=== PATIENT | male | born 1935 | race African-American/Black ===

== ENCOUNTER 2018-04-19 09:25 | Outpatient (CLI) | payer MEDICARE, BC ==
[~2018-04-19] VITALS: Ht 167.6 cm; Wt 73.5 kg
[2018-04-19] VITALS (10 sets, daily range): BP systolic 129–177; BP diastolic 60–77
[2018-04-19] MEDS ORDERED: ALLO100T PO (10:06)
[2018-04-19] MEDS ORDERED: PIOG15TA42 PO (10:08)
[2018-04-19] MEDS ORDERED: GLIM4TAB2 PO (10:08)
[2018-04-19] MEDS ORDERED: CLON0.2T PO (10:08)
[2018-04-19] MEDS ORDERED: LISI-334 PO (10:08)
[2018-04-19] MEDS ORDERED: ASPI-630 PO (10:08)
[2018-04-19] MEDS ORDERED: AMLO10TA6 PO (10:08)
[2018-04-19] MEDS ORDERED: METF500T16 PO (10:08)
[2018-04-19] MEDS ORDERED: POTA20TA82 PO (10:08)
[2018-04-19] MEDS ORDERED: LANS30CA66 PO (10:08)
[2018-04-19 10:12] LABS: BASO % 1 % (0-3); EOS # 0.2 x10^3/uL (0.0-0.7); EOS % 2 % (0-3); HEMATOCRIT 39.8 % (39.0-53.0); HEMOGLOBIN 13.6 g/dL (13.0-17.5); LYMPH # 1.8 x10^3/uL (1.0-4.8); LYMPH % 23 % (24-48); MEAN CORPUSCULAR HEMOGLOBIN 28 pg (25-35); MEAN CORPUSCULAR HGB CONC 34 g/dL (31-37); MEAN CORPUSCULAR VOLUME 83 fL (79-100); MONO # 0.8 x10^3/uL (0.0-1.1); MONO % 10 % (0-9); NEUT # 5.1 x10^3uL (1.8-7.7); NEUT % 64 % (31-73); PLATELET COUNT 248 x10^3/uL (140-400); RED BLOOD COUNT 4.82 x10^6/uL (4.30-5.70); WHITE BLOOD COUNT 7.9 x10^3/uL (4.0-11.0)
[2018-04-19 10:20] LABS: PROTHROMBIN TIME PATIENT 12.4 SEC (11.7-14.0)
[2018-04-19] MEDS ORDERED: LIDOCAINE 1% Multi-Dose 20 ML VIAL. ONE (11:06)
[2018-04-19] MEDS ORDERED: IODIXANOL 320 MG/ML 100 ML VIAL. ONE (11:06)
[2018-04-19] MEDS ORDERED: fentaNYL PF VIAL 100 MCG/2 ML VIAL ONE (11:17)
[2018-04-19] MEDS ORDERED: MIDAZOLAM HCL/PF 5 MG/5 ML VIAL. ONE (11:17)
[2018-04-19] MEDS ORDERED: HEPARIN for IV BOLUS 10,000 UNIT/10 ML VIAL. ONE (11:17)
[2018-04-19 11:35] LABS: CALCIUM 9.5 mg/dL (8.5-10.1); CREATININE 1.6 mg/dL (0.7-1.3); GFR 50.4; POTASSIUM 4.1 mmol/L (3.5-5.1)
[2018-04-19] MEDS ORDERED: MIDAZOLAM HCL/PF 5 MG/5 ML VIAL. IV ONE (11:45)
[2018-04-19] MEDS ORDERED: IODIXANOL 320 MG/ML 100 ML VIAL. IART ONE (11:45)
[2018-04-19] MEDS ORDERED: LIDOCAINE 1% Multi-Dose 20 ML VIAL. INJ ONE (11:45)
[2018-04-19] MEDS ORDERED: fentaNYL PF VIAL 100 MCG/2 ML VIAL IV ONE ×2 (11:45→13:30)
--- NOTE | 2018-04-19 12:58 | CARD ---
MR#: [id number] Date of Study: 04/19/2018 Ordering Physician: VINNY FISCHER, Referring Physician: VINNY FISCHER, Tech: Samanthafloridalma Zambrano RTR APPROVED REPORT Patient StatusOUT-PATIENT Candy Cutter Hand: Samantha Zambrano RTR Procedure(s) performed: Aortogram with bilateral lower extremity runoff Moderate Sedation time: 40 mins INDICATION FOR PROCEDURE The indication(s) include : Peripheral artery disease with claudication and nonhealing wound left roberto t. PROCEDURE NARRATIVE After explaining the risks, benefits and alternative options, informed consent was obtained from evelin ent. Patient was brought to the cardiac Bulk System Operator and his right groin was prepped and draped in the us ual fashion. 20 mL of 2% lidocaine was infiltrated into the skin and subcutaneous tissues for local a nesthesia. Arterial access was obtained the right common femoral artery and a 5 Cameroonian sheath was ins erted. 5 Cameroonian pigtail catheter was used to perform aortogram with bilateral lower extremity runoff. Selective injections were performed within the abdominal aorta to better visualize the abdominal aor tic aneurysm with possible dissection. Patient tolerated the procedure well. Hemostasis in the right groin was achieved using mynx closure device. There were no immediate complications. FINDINGS 1. Infrarenal abdominal aortic aneurysm with dissection causing approximately 80% luminal obstructio n. 2. The left common iliac artery showed 20% ostial stenosis. The right common iliac artery showed 30% distal segment stenosis. 3. The external iliac arteries did not show any significant stenosis bilaterally. 4. The common femoral arteries did not show any significant stenosis bilaterally. 5. The left superficial femoral artery showed long 100% chronic total occlusion involving the midseg ment with distal reconstitution from collaterals. The right superficial femoral artery showed 60-70% stenosis in the midsegment. 6. The popliteal arteries did not show any significant stenosis bilaterally. 7. The left anterior tibial artery showed 100% chronic total occlusion proximally. The left posterio r tibial artery showed 100% chronic total occlusion proximally. The left peroneal artery did not show any significant stenosis. 8. The right anterior tibial artery showed 100% chronic occlusion proximally. The right posterior ti bial artery showed 100% chronic total occlusion proximally. The peroneal artery did not show any crit ical stenosis in the proximal to midsegment. The distal segments of these vessels were not visualized properly. Conclusion 1. Significant bilateral lower extremity peripheral artery disease as described above including chron ic total occlusion involving the midsegment of the left superficial femoral artery 2. Infrarenal abdominal aortic aneurysm with dissection flap causing 80% luminal stenosis Recommendations Vascular surgery consultation for abdominal aortic aneurysm with dissection We will consider BRAKE LINING MAKER to left SFA at a later date Signed by : Vinny Fischer, Electronically Approved : 04/19/2018 12:57:15
[2018-04-19] MEDS ORDERED: IV 1/2 NORMAL SALINE 1,000 ML IV SCH (13:18)
--- NOTE | 2018-04-19 13:18 | PDOC ---
MODERATE SEDATION ASSESSMENT RISKS/ALTERNATIVES Risks/Alternatives Risks and alternatives of this type of sedation and procedure discussed with: RISK/ALTERNATIVES: Patient H & P ON CHART H & P H & P on chart and reviewed for co-morbid conditions and appropriate labs. H&P ON CHART: Yes STATUS PREG STATUS ASSESSED: N/A MEDS/ALLERGIES REVIEWED Meds/Allergies Reviewed Medications and Allergies including time and route of recently administered narcotics and sedatives. MEDS/ALLERGIES REVIEWED: Yes ASA RATING ASA RATING: III AIRWAY ASSESSMENT Airway Assessment Airway patency, oral function limitations, presence of caps, crowns, dentures, partials, and ability to extend neck assessed. AIRWAY ASSESSMENT: Yes MALLAMPATI SCORE MALLAMPATI SCORE: II PRE-SEDATION ASSESSMENT PRE-SEDATION ASSESSMENT: Yes VINNY PORRAS MD Apr 19, 2018 13:18
[2018-04-19] MEDS ORDERED: ACETAMINOPHEN 325 MG TABLET. PO PRN (13:30)
[2018-04-19] MEDS ORDERED: MIDAZOLAM HCL/PF 2 MG/2 ML VIAL. IV ONE (13:30)
--- NOTE | 2018-04-19 14:27 | CARD ---
MR#: [id number] Date of Study: 04/19/2018 Ordering Physician: VINNY FISCHER, Referring Physician: VINNY FISCHER Tech: Fina Pagan RDCS APPROVED REPORT EXAM: Two-dimensional and M-mode echocardiogram with Doppler and color Doppler. Other Information Quality : GoodHR: 62bpm Rhythm : NSR INDICATION PVD 2D DIMENSIONS RVDd3.7 (2.9-3.5cm)Left Atrium(2D)2.7 (1.6-4.0cm) IVSd1.0 (0.7-1.1cm)Aortic Root(2D)3.2 (2.0-3.7cm) LVDd4.2 (3.9-5.9cm)LVOT Diameter1.9 (1.8-2.4cm) PWd0.9 (0.7-1.1cm)LVDs3.1 (2.5-4.0cm) FS (%) 27.5 %SV43.1 ml LVEF(%)53.9 (>50%) M-Mode DIMENSIONS Left Atrium(MM)2.80 (2.5-4.0cm)Aortic Root3.55 (2.2-3.7cm) Aortic Valve AoV Peak Erickson.151.7cm/sAoV VTI35.3cm AO Peak GR.9.2mmHgLVOT Peak Erickson.80.5cm/s AO Mean GR.5mmHgAVA (VMAX)1.52cm2 AMY (VTI)1.60cm2 Mitral Valve MV E Xpbblvlp69.4cm/sMV DECEL GYHF940en MV A Bgjznqvp350.2cm/sE/A Ratio0.6 MV A Smougere821td Pulmonary Valve PV Peak Lsmxdmfu69.9cm/s Tricuspid Valve TR P. Kmwxlttt810cq/sRAP NQUMBSKG7tvEx TR Peak Gr.06mkMfKWMI02fwMu LEFT VENTRICLE The left ventricle is normal size. There is normal left ventricular wall thickness. The left ventricu lar systolic function is normal. The Ejection Fraction is 55-60%. There is normal LV segmental wall m otion. Transmitral Doppler flow pattern is Grade I-abnormal relaxation pattern. RIGHT VENTRICLE The right ventricle is normal size. There is normal right ventricular wall thickness. The right ventr icular systolic function is normal. ATRIA The left atrium size is normal. The right atrium size is normal. The interatrial septum is intact wit h no evidence for an atrial septal defect or patent foramen ovale as noted on 2-D or Doppler imaging. AORTIC VALVE The aortic valve is mildly sclerotic. The aortic valve is trileaflet. Doppler and Color Flow revealed no significant aortic regurgitation. There is no significant aortic valvular stenosis. MITRAL VALVE The mitral valve is normal in structure and function. There is no evidence of mitral valve prolapse. There is no mitral valve stenosis. Doppler and Color Flow revealed no mitral valve regurgitation note d. TRICUSPID VALVE The tricuspid valve is normal in structure and function. Doppler and Color Flow revealed trace tricus pid regurgitation. The PA pressure was estimated at 24 mmHg. There is no tricuspid valve prolapse or vegetation. There is no tricuspid valve stenosis. PULMONIC VALVE The pulmonary valve is normal in structure and function. Doppler and Color Flow revealed no pulmonic valvular regurgitation. There is no pulmonic valvular stenosis. GREAT VESSELS The aortic root is normal in size. The ascending aorta is normal in size. The IVC is normal in size a nd collapses >50% with inspiration. PERICARDIAL EFFUSION There is no evidence of significant pericardial effusion. Critical Notification Critical Value: No <Conclusion> The left ventricular systolic function is normal. The Ejection Fraction is 55-60%. There is normal LV segmental wall motion. Transmitral Doppler flow pattern is Grade I-abnormal relaxation pattern. Trace tricuspid regurgitation. The PA pressure was estimated at 24 mmHg. There is no evidence of significant pericardial effusion. Signed by : Vinny Fischer, Electronically Approved : 04/19/2018 14:25:58
--- NOTE | 2018-04-19 15:14 | NUR ---
Discharge Note: MARIA DEL ROSARIO LOVELL Discharge instructions and discharge home medications reviewed with Patient and a copy given. All questions have been answered and understanding verbalized. The following instructions and handouts were given: education was given to patient regarding moderate sedation, groin site care, and CTA that is scheduled. Pt was also instructed to be NPO [address] Pt was also instructed to continue home medications as directed. Pt verbalized understanding. Discontinued lines and drains: peripheral iv was discontinued with no complications. Catheter tip was intact. Patient discharged to home with self care via wheelchair. Pt was accompanied by spouse.
== END 2018-04-19 15:17 | disposition home or self-care (01) ==
LOC: CCL 09:25
PROVIDERS: ATTEND Internal Medicine Cardiovascular Disease
DX: I70.213 Atherosclerosis of native arteries of extremities with intermittent claudication, bilateral legs (principal); I70.92 Chronic total occlusion of artery of the extremities; I71.4 Abdominal aortic aneurysm, without rupture; I10 Essential (primary) hypertension; E11.9 Type 2 diabetes mellitus without complications; M10.9 Gout, unspecified; Z98.49 Cataract extraction status, unspecified eye; Z96.1 Presence of intraocular lens; Z79.84 Long term (current) use of oral hypoglycemic drugs; Z79.899 Other long term (current) drug therapy
CPT/HCPCS: 36200; 36415; 75630; 80048; 85025; 85610; 93306; 99152; 99153; C1713; C1769; C1892; J1644; J2250; J3010; Q9967; G0269

== ENCOUNTER → 2018-04-23 | Outpatient (CLI) | payer MEDICARE, BC ==
[2018-04-19 14:25] VITALS: BP 165/77
[~2018-04-23] MED LIST: ALLO100T PO; AMLO10TA6 PO; ASPI-630 PO; CLON0.2T PO; CONTRAST GIVEN. MC PRN; GLIM4TAB2 PO; IOHEXOL 300 MG/ML 100ML VIAL. IV ONE; LANS30CA66 PO; LISI-334 PO; METF500T16 PO; PIOG15TA42 PO; POTA20TA82 PO
--- NOTE | 2018-04-23 16:48 | RAD ---
CT angiography of the abdomen and pelvis 04/23/2018 INDICATION: Infrarenal abdominal aortic aneurysm. COMPARISON STUDY: Intraoperative imaging during femoral runoff April 19, 2018 TECHNIQUE: Multidetector CT imaging of the abdomen and pelvis was performed both before and after the administration of IV contrast. 3-D maximum intensity projection and volume rendered reconstructions were created on an independent workstation and reviewed. Discussion: There is diffuse as described vascular disease. The visualized descending thoracic aorta is otherwise unremarkable. Minimal nonflow-limiting narrowing is seen involving the proximal celiac artery. Mild ectasia is seen distal to this. The superior mesenteric artery is patent. Approximately 50 percent stenoses of the bilateral renal arteries is seen proximally. There is an infrarenal abdominal aortic ectasia measuring up to 2.8 cm in diameter. Beginning approximately 1.8 cm below the renal arteries is a chronic appearing infrarenal abdominal aortic dissection. There is no estimated 80 percent narrowing of the true lumen. This is on the right side of the abdominal aorta. The dissection resolves above the aortic bifurcation. There is an approximately 70 percent stenosis involving the ostium of the left common iliac artery. 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 Artery measures approximately 1.1 cm at this level.Tortuosity of the iliac vessels is seen. High-grade stenosis of the left internal iliac artery is seen. The left external iliac artery and left common femoral artery are grossly patent.. 90 percent stenosis of the proximal left SFA noted. There is approximately 25 percent stenosis of the right common iliac artery ostium. Diffuse calcification of the right common iliac artery is seen. High-grade stenosis origin right internal iliac artery is seen. The right external iliac artery is grossly patent. Right common femoral artery is grossly patent. Visualized right superficial femoral artery is grossly patent. Nonvascular findings: Centrilobular emphysema is seen involving the bilateral lung bases. Right parahilar adenopathy is noted. This is partially visualized. No comparison studies available for review. Calcified mediastinal lymph nodes appear to be present. Findings are nonspecific. CT chest with contrast recommended for further characterization. Evidence of prior granulomatous disease involving the spleen is noted. Small fat-containing adenoma in the left adrenal gland measuring 1 cm diameter noted. Areas of renal scarring versus prior infarcts and small renal cysts noted. Solid viscera of the abdomen demonstrate no acute or melena. No bowel obstruction is seen. Extensive colonic diverticulosis is noted no evidence of acute inflammatory changes identified. Appendix is unremarkable. Bladder appears mildly thickened. The prostate is enlarged. No acute osseous changes are identified. IMPRESSION: 1.Chronic appearing infrarenal abdominal aortic dissection with approximately 80 percent narrowing of the infrarenal abdominal aortic diameter. Dissection does not extend below the bifurcation. 2. 50 percent stenoses of the bilateral renal arteries. 3. Approximately 70 percent stenosis of the left common iliac artery. 25 percent stenosis of the right common iliac artery. 4.High-grade stenosis of the proximal left SFA. 5. High-grade stenosis of the bilateral internal iliac arteries 6. Partially visualized noncalcified right hilar adenopathy. Splenic calcifications other calcified mediastinal lymph nodes noted. Findings most likely reflect granulomatous change however given the presence of COPD and likely high risk status of the patient, as well as the noncalcified appearance of some of these nodes, CT chest with contrast recommended for further evaluation. CT DOSING PQRS STATEMENT: One or more of the following individualized dose reduction techniques were utilized for this examination: 1. Automated exposure control 2. Adjustment of the mA and/or kV according to patient size 3. Use of iterative reconstruction technique Electronically signed by: Austin Rodriguez MD (04/23/2018 4:43 PM) [id number]
== END | disposition home or self-care (01) ==
LOC: CT 10:56
PROVIDERS: ATTEND Internal Medicine Cardiovascular Disease
DX: I77.811 Abdominal aortic ectasia (principal); I70.1 Atherosclerosis of renal artery; K57.30 Diverticulosis of large intestine without perforation or abscess without bleeding; D71 Functional disorders of polymorphonuclear neutrophils; J43.2 Centrilobular emphysema; D35.00 Benign neoplasm of unspecified adrenal gland; R59.0 Localized enlarged lymph nodes
CPT/HCPCS: 74174; Q9967

== ENCOUNTER 2018-06-11 06:28 | Inpatient (IN) | payer MEDICARE, BC ==
[2018-06-11] VITALS (12 sets, daily range): BP systolic 122–188; BP diastolic 49–84
[~2018-06-11] VITALS: Ht 167.6 cm; Wt 71.9 kg
[~2018-06-11 06:28] MED LIST changes: -AMLO10TA6 PO; +AMLO10TA8 PO; -CONTRAST GIVEN. MC PRN; -IOHEXOL 300 MG/ML 100ML VIAL. IV ONE
[2018-06-11] MEDS ORDERED: IV NORMAL SALINE 1000ML BAG 1,000 ML IV SCH (07:00)
[2018-06-11 07:20] LABS: HEMATOCRIT 40.8 % (39.0-53.0); HEMOGLOBIN 13.2 g/dL (13.0-17.5); RED BLOOD COUNT 4.93 x10^6/uL (4.30-5.70); RED CELL DISTRIBUTION WIDTH 14.5 % (11.5-14.5); WHITE BLOOD COUNT 8.4 x10^3/uL (4.0-11.0)
[2018-06-11 07:35] LABS: PROTHROMBIN TIME PATIENT 12.5 SEC (11.7-14.0)
[2018-06-11 07:36] LABS: CALCIUM 9.9 mg/dL (8.5-10.1); CREATININE 1.6 mg/dL (0.7-1.3); GFR 50.4; POTASSIUM 4.7 mmol/L (3.5-5.1)
[2018-06-11] MEDS ORDERED: LIDOCAINE 1% Multi-Dose 20 ML VIAL. ONE (07:42)
[2018-06-11] MEDS ORDERED: IODIXANOL 320 MG/ML 100 ML VIAL. ONE (07:42)
[2018-06-11] MEDS ORDERED: MIDAZOLAM HCL/PF 2 MG/2 ML VIAL. ONE ×2 (08:53→09:13)
[2018-06-11] MEDS ORDERED: fentaNYL PF VIAL 100 MCG/2 ML VIAL ONE (08:53)
[2018-06-11] MEDS ORDERED: fentaNYL PF VIAL 100 MCG/2 ML VIAL IV ONE (09:00)
[2018-06-11] MEDS ORDERED: IODIXANOL 320 MG/ML 100 ML VIAL. IART ONE (09:00)
[2018-06-11] MEDS ORDERED: MIDAZOLAM HCL/PF 2 MG/2 ML VIAL. IV ONE (09:00)
[2018-06-11] MEDS ORDERED: LIDOCAINE 1% Multi-Dose 20 ML VIAL. INJ ONE (09:00)
[2018-06-11] MEDS ORDERED: CONTRAST GIVEN. MC PRN (09:15)
[2018-06-11] MEDS ORDERED: HEPARIN for IV BOLUS 10,000 UNIT/10 ML VIAL. IV ONE (11:00)
[2018-06-11] MEDS ORDERED: NITROGLYCERIN 200 MCG/2 ML SYRINGE FOR CATH/VASC LAB. IART ONE (11:00)
[2018-06-11] MEDS ORDERED: CLOPIDOGREL BISULFATE 75 MG TABLET ONE (11:03)
[2018-06-11] MEDS ORDERED: NITROGLYCERIN 200 MCG/2 ML SYRINGE FOR CATH/VASC LAB. ONE (11:03)
[2018-06-11] MEDS ORDERED: ASPIRIN 325 MG TABLET ONE (11:09)
[2018-06-11] MEDS ORDERED: CLOPIDOGREL BISULFATE 75 MG TABLET PO ONE (11:15)
[2018-06-11] MEDS ORDERED: ASPIRIN 325 MG TABLET PO ONE (11:15)
--- NOTE | 2018-06-11 12:00 | NUR ---
Patient arrived to unit from director labor standards. Right groin is soft, no bleeding. Bilateral DP pulses dopplered. Vital Signs stable. Patient oriented to unit. Call light within reach. No complaints at the moment. Will continue to monitor.
[2018-06-11] MEDS ORDERED: DEXTROSE 50% 25 GM / 50ML DISP.SYRIN. IV PRN (13:45)
[2018-06-11] MEDS: LISINOPRIL 20 MG TABLET PO SCH (14:41)
[2018-06-11] MEDS: amLODIPine BESYLATE 10 MG TABLET PO SCH (14:41)
[2018-06-11] MEDS ORDERED: ASPIRIN CHEWABLE 81 MG TABLET. PO SCH (15:00)
[2018-06-11] MEDS ORDERED: IV 1/2 NORMAL SALINE 1,000 ML IV SCH (16:57)
--- NOTE | 2018-06-11 16:57 | PDOC ---
MODERATE SEDATION ASSESSMENT RISKS/ALTERNATIVES Risks/Alternatives Risks and alternatives of this type of sedation and procedure discussed with: RISK/ALTERNATIVES: Patient H & P ON CHART H & P H & P on chart and reviewed for co-morbid conditions and appropriate labs. H&P ON CHART: Yes STATUS PREG STATUS ASSESSED: N/A MEDS/ALLERGIES REVIEWED Meds/Allergies Reviewed Medications and Allergies including time and route of recently administered narcotics and sedatives. MEDS/ALLERGIES REVIEWED: Yes ASA RATING ASA RATING: III AIRWAY ASSESSMENT Airway Assessment Airway patency, oral function limitations, presence of caps, crowns, dentures, partials, and ability to extend neck assessed. AIRWAY ASSESSMENT: Yes MALLAMPATI SCORE MALLAMPATI SCORE: II PRE-SEDATION ASSESSMENT PRE-SEDATION ASSESSMENT: Yes VINNY PORRAS MD Jun 11, 2018 16:57
[2018-06-11] MEDS ORDERED: ACETAMINOPHEN 325 MG TABLET. PO PRN (17:00)
[2018-06-11] MEDS: INSULIN LISPRO 300 UNITS/3 ML INSULN.PEN. SQ SCH (17:00)
--- NOTE | 2018-06-11 17:17 | CARD ---
MR#: [id number] Date of Study: 06/11/2018 Ordering Physician: VINNY FISCHER, Referring Physician: VINNY FISCHER, Tech: RT Bhavani (R) APPROVED REPORT Technologist: RT Bhavani (R) Nurse: Fouzia Cespedes R.N. Procedure(s) performed: Successful SHEET ROCK TAPER/stents placement to the left superficial femoral artery Moderate sedation: 134 mins INDICATION The indication(s) include : Peripheral vascular disease with claudication. PROCEDURE NARRATIVE After explaining the risks, benefits and alternative options, informed consent was obtained from evelin ent. Patient was brought to the cardiac Computer Aided Design Drafter and his right groin was prepped and draped in the us ual fashion. 20 mL of 2% lidocaine was infiltrated into the skin and subcutaneous tissues for local a nesthesia. Arterial access was obtained the right common femoral artery and a 6 Liberian sheath was ins erted. A 6 Liberian UF catheter was then used to cross the aortic papa with a 0.035 inch Glidewire ad vantage guidewire. The sheath in the right groin was exchanged to a 6 Liberian 65 cm destination sheath that was advanced under fluoroscopy guidance and the tip was positioned in the left common femoral a rtery. Selective angiography confirmed the previous he described long 100% chronic total occlusion in volving midsegment of the left superficial femoral artery. The very proximal segment showed 60-70% st enosis. There was one vessel runoff below the knee with peroneal artery as described in recent angiog laura with chronic total occlusions of left anterior and posterior tibial arteries. After several attempts, the long chronic total occlusion in th left superficial femoral artery was cr ossed with the Glidewire advantage with backup support from 4 Liberian angled glide catheter. Contrast injections distal to the lesion however showed thrombus in the distal segment causing occlusion. A Pr onto aspiration catheter was then used to make multiple thrombectomy passes. Subsequently, the wire w as changed to a 0.014 inch command ES guidewire. The lesions in the distal and mid segments of the le ft SFA predilated with a 5.0 x 1 50 mm Reimage [place] balloon and the very proximal segment was dilate d with a 5.0 x 40 mm Brito [place] balloon. The distal segment was then treated with a 5.0 x 100 mm A [employer] supera self-expanding stent. The region of the proximal cap of the chronic total occlusion was covered with 5.5 x 60 mm Brito supera self-expanding stent. Follow-up angiography showed resolution of the lesions with good distal flow. Patient tolerated the procedure well. Hemostasis was achieved u sing mynx closure device. There were no immediate complications. Conclusion Successful and complex SHEET ROCK TAPER/stent placement to the left superficial femoral artery. Recommendations 1. Aspirin 81 mg daily 2. Plavix 325 mg daily 3. Vascular risk factor modification Signed by : Vinny Fischer, Electronically Approved : 06/11/2018 17:16:47
[2018-06-11] MEDS: PANTOPRAZOLE 40 MG TABLET.DR. PO SCH (17:34)
[2018-06-11] MEDS: ALLOPURINOL 100 MG TABLET. PO SCH (17:34)
[2018-06-11] MEDS ORDERED: cloNIDine HCL 0.2 MG TABLET PO SCH (21:00)
[2018-06-11] MEDS: GLIMEPIRIDE 2 MG TABLET. PO SCH (21:39)
[2018-06-12 03:25] VITALS: BP 133/66
[2018-06-12 07:00] VITALS: BP 154/72
[2018-06-12] MEDS ORDERED: CLOPIDOGREL BISULFATE 75 MG TABLET PO SCH (08:00)
[2018-06-12] MEDS ORDERED: POTASSIUM CHLORIDE 20 MEQ TABLET.ER. PO SCH (08:00)
[2018-06-12] MEDS ORDERED: ASPIRIN ENTERIC COATED 81 MG TABLET.DR. PO SCH (08:00)
[2018-06-12] MEDS: INSULIN LISPRO 300 UNITS/3 ML INSULN.PEN. SQ SCH (08:00)
[2018-06-12] MEDS: ALLOPURINOL 100 MG TABLET. PO SCH (09:00)
[2018-06-12] MEDS ORDERED: ASPIRIN ENTERIC COATED 325 MG TABLET.DR. PO SCH (09:00)
[2018-06-12] MEDS: PANTOPRAZOLE 40 MG TABLET.DR. PO SCH (09:01)
[2018-06-12] MEDS: amLODIPine BESYLATE 10 MG TABLET PO SCH (09:01)
[2018-06-12] MEDS: GLIMEPIRIDE 2 MG TABLET. PO SCH (09:01)
[2018-06-12] MEDS: LISINOPRIL 20 MG TABLET PO SCH (09:02)
[2018-06-12 10:43] VITALS: BP 140/71
--- NOTE | 2018-06-12 14:45 | NUR ---
DISCHARGED PATIENT TO HOME. M.T SYSTEM IS DOWN. DISCHARGE INSTRUCTIONS ARE ON DOWN TIME PAPER AND COPY IN HARD CHART. PIV AND HEART MONITOR REMOVED. ESCORTED PATIENT TO FRONT ENTRANCE PER WHEELCHAIR INTO A PRIVATE VEHICLE.
--- NOTE | 2018-06-12 15:01 | NUR ---
SS following for discharge planning. SS reviewed pt chart. Pt is from home with spouse and currently on room air. No discharge needs noted at this time. SS will continue to follow for pending discharge needs.
--- NOTE | 2018-06-12 15:21 | PDOC3 ---
YANIQUE PERSAUD BELL NECK HAMMERER 06/12/18 1521: Discharge Summary Visit Information Date of Admission: Jun 11, 2018 Date of Discharge: Jun 12, 2018 Admitting Diagnosis: Severe PAD with nonhealing wound and claudication Final Diagnosis Severe LE PAD, S/P LABORER TIN CAN/stent to [facility] Brief Hospital Course Allergies Allergies Coded Allergies Type Severity Reaction Last Updated Verified No Known Drug Allergies 10/23/13 No Vital Signs Vital Signs Date Time Temp Pulse Resp B/P (MAP) Pulse Ox O2 Delivery O2 Flow Rate FiO2 06/12/18 10:43 98.2 89 18 140/71 (94) 96 Room Air 98.2 06/11/18 11:27 2.0 Lab Results Laboratory Tests Test 06/11/18 07:01 06/11/18 11:48 06/11/18 16:56 06/11/18 20:40 White Blood Count 8.4 x10^3/uL (4.0-11.0) Red Blood Count 4.93 x10^6/uL (4.30-5.70) Hemoglobin 13.2 g/dL (13.0-17.5) Hematocrit 40.8 % (39.0-53.0) Mean Corpuscular Volume 83 fL (79-100) Mean Corpuscular Hemoglobin 27 pg (25-35) Mean Corpuscular Hemoglobin Concent 32 g/dL (31-37) Red Cell Distribution Width 14.5 % (11.5-14.5) Platelet Count 256 x10^3/uL (140-400) Prothrombin Time 12.5 SEC (11.7-14.0) Prothromb Time International Ratio 1.0 (0.8-1.1) Sodium Level 142 mmol/L (136-145) Potassium Level 4.7 mmol/L (3.5-5.1) Chloride Level 102 mmol/L (98-107) Carbon Dioxide Level 28 mmol/L (21-32) Anion Gap 12 (6-14) Blood Urea Nitrogen 22 mg/dL (8-26) Creatinine 1.6 mg/dL (0.7-1.3) Estimated GFR (Cockcroft-Gault) 50.4 Glucose Level 163 mg/dL (70-99) Calcium Level 9.9 mg/dL (8.5-10.1) Glucose (Fingerstick) 122 mg/dL (70-99) 113 mg/dL (70-99) 128 mg/dL (70-99) Test 06/12/18 07:21 06/12/18 11:28 Glucose (Fingerstick) 114 mg/dL (70-99) 188 mg/dL (70-99) Laboratory Tests Test 06/11/18 16:56 06/11/18 20:40 06/12/18 07:21 06/12/18 11:28 Glucose (Fingerstick) 113 mg/dL (70-99) 128 mg/dL (70-99) 114 mg/dL (70-99) 188 mg/dL (70-99) Brief Hospital Course Mr. Robertson is a 83 yo male admitted for planned femoral runoff. Pt seen in office with complains of LLE claudications with known PAD. also noted with nonhealing wound to foot. Femoral runoff revealed significnat stenosis to LSFA prompting a successful LABORER TIN CAN/stent to LSFA via right transfemoral approach. Right groin is inact, with small hematoma but otherwise no swelling or tenderness, neurovascular status to bilateral LE intact. VSS. No pain, no CP nor SOA. Able to ambulate without difficulty. Post cath instructions provided. Discussed meds with pt and told metformin till tomorrow evening. 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 Will obtain follow up lipids as an outpt and will discuss further antilipemics either challenge with a different statin or try PCSK9 inhibitor. Home ASA 325 mg and plavix. Discharge Information Condition at Discharge: Stable Follow Up: Weeks (4) Disposition/Orders: D/C to Home Scheduled Allopurinol (Allopurinol) 100 Mg Tablet, 1 TAB PO DAILY for md order, #30 Ref 5 (Reported) Entered as Reported by: ANA RUSH on 04/19/18 1006 Last Taken: Unknown Dose on 06/10/18 Last Action: Continued on 06/11/18 1421 by IVET APODACA Amlodipine Besylate (Amlodipine Besylate) 10 Mg Tablet, 10 MG PO DAILY for HTN, (Reported) Entered as Reported by: ANA RUSH on 04/19/18 1008 Last Taken: Unknown Dose on 06/11/18 Last Action: Continued on 06/11/18 1421 by IVET APODACA Aspirin (Aspirin) 81 Mg Tab.chew, 1 TAB PO DAILY for md order, #30 Ref 3 ( Reported) Entered as Reported by: ANA RUSH on 04/19/181007 Last Taken: Unknown Dose on 06/10/18 Last Action: Continued on 06/11/181420 by IVET APODACA Clonidine Hcl (Clonidine Hcl) 0.2 Mg Tablet, 1 TAB PO QHS for HTN, #60 Ref 5 ( Reported) Entered as Reported by: ANA RUSH on 04/19/181007 Last Taken: Unknown Dose on 06/10/18 Last Action: Continued on 06/11/181420 by IVET APODACA Glimepiride (Glimepiride) 4 Mg Tablet, 1 TAB PO BID for md order, #30 Ref 5 ( Reported) Entered as Reported by: ANA RUSH on 04/19/181007 Last Taken: Unknown Dose on 06/10/18 Last Action: Converted on 06/11/181420 by IVET APODACA Lansoprazole (Prevacid) 30 Mg Capsule.dr, 1 CAP PO DAILY for md order, #30 Ref 3 (Reported) Entered as Reported by: ANA RUSH on 04/19/181007 Last Taken: Unknown Dose on 06/10/18 Last Action: Converted on 06/11/181420 by IVET APODACA Lisinopril (Lisinopril) 20 Mg Tablet, 1 TAB PO DAILY for HTN, #30 Ref 5 ( Reported) Entered as Reported by: ANA RUSH on 04/19/181007 Last Taken: Unknown Dose on 06/11/18 Last Action: Continued on 06/11/181420 by IVET APODACA Metformin Hcl (Metformin Hcl) 500 Mg Tablet, 500 MG PO BIDWMEALS for ANTI- DIABETIC, Ref 0 (Reported) Entered as Reported by: ANA RUSH on 04/19/181007 Last Taken: Unknown Dose on 06/10/18 Last Action: Last Taken Edited on 0743 by DOMINGO LOU Potassium Chloride (Potassium Chloride) 20 Meq Tablet.er, 20 MEQ PO DAILY for low potassium, (Reported) Entered as Reported by: ANA RUSH on 04/19/181007 Last Taken: Unknown Dose on 06/10/18 Last Action: Converted on 06/11/181420 by IVET APODACA Patient Instructions Patient Instructions GENERAL INSTRUCTIONS: 1. Your dressing should be removed prior to leaving the hospital. 2. It is OK to shower the day after your procedure. 3. If you received stents, be sure to carry your stent information card with you in your wallet/purse at all times. 4. Call the office immediately at [phone] if you notice any fever or if there is redness, worsening tenderness/pain, increased bruising, or drainage from the puncture site. 5. Should you have bleeding from the site, lie down immediately & put pressure on the site. The pressure should be hard enough to stop the bleeding. Have the nearest person call 911. DO NOT try to drive to the ER with active bleeding. 6. If you notice a change in color, coolness to touch, or loss of feeling in the affected extremity, come to the emergency room. Please have someone drive you or call 911 if no one is available. DO NOT drive yourself. 7. If you normally take glucophage (metformin), please do not take this medicine for 48 hours following your procedure. 8. DO NOT STOP TAKING YOUR PLAVIX OR ASPIRIN UNLESS IT IS CLEARED BY A STRAP MAKING MACHINE OPERATOR OF YOUR BACKGROUND CHECK COORDINATOR AT OUR OFFICE. 9. QUIT SMOKING: the [place] [employer], [place] [employer], & [place] [employer] have cessation resources available on their websites 10. Please have someone available to drive you home from the hospital as you may be limited by sedation medications given during the procedure. Femoral (Groin) access: 1. Do no lifting, pushing, pulling, bending, stooping, or recurrent stair climbing for 3 days following your procedure. 2. Once past the first 3 days, do not do any HEAVY exertion or lifting for one week following the procedure. No gym workouts, running, lifting greater than a gallon of milk, etc 3. Do not submerge in bath or pool for one week. OK to drive 3 days following your procedure, but if going long distance, do not go alone & take hourly breaks to get out of car and walk around. Call the office at [phone] for any questions or concerns. VINNY PORRAS MD 06/12/18: Discharge Summary Brief Hospital Course Brief Hospital Course Patient seen and examined. Agree with WEIGHT GUESSER's assessment and plan. s/p LABORER TIN CAN/stent to left SFA, doing well. Groin access site good. OK for DC and follow up in one month. YANIQUE PERSAUD APRN Jun 12, 2018 15:21 VINNY PORRAS MD Jun 12, 2018 22:06
== END 2018-06-12 14:45 | disposition home or self-care (01) | DRG 270 ==
LOC: CCL 06:28 → 2 SOUTH 11:12
PROVIDERS: ADMIT Internal Medicine Cardiovascular Disease; ATTEND Internal Medicine Cardiovascular Disease
PROC: 04CL3ZZ Extirpation of Matter from Left Femoral Artery, Percutaneous Approach (ICD-10-PCS; principal; 2018-06-11)
PROC: 047L3EZ Dilation of Left Femoral Artery with Two Intraluminal Devices, Percutaneous Approach (ICD-10-PCS; 2018-06-11)
PROC: B41G1ZZ Fluoroscopy of Left Lower Extremity Arteries using Low Osmolar Contrast (ICD-10-PCS; 2018-06-11)
DX: I70.212 Atherosclerosis of native arteries of extremities with intermittent claudication, left leg (principal); I71.01 Dissection of thoracic aorta; I70.92 Chronic total occlusion of artery of the extremities; E11.51 Type 2 diabetes mellitus with diabetic peripheral angiopathy without gangrene; G72.9 Myopathy, unspecified; Z79.899 Other long term (current) drug therapy
CPT/HCPCS: 36415; 37184; 37226; 75710; 80048; 82962; 85027; 85610; 99152; 99153; C1713; C1757; C1769; C1876; C1885; C1892; G0269; J1644; J1815; J2250; J3010; J3490; J7030; Q9967

== ENCOUNTER → 2019-01-15 | Outpatient (CLI) | payer MEDICARE, BC ==
[~2019-01-15] MED LIST changes: +CLOP75TA PO; -GLIM4TAB2 PO; +GLIM4TAB4 PO; +REGADENOSON 0.4 MG/5 ML DISP.SYRIN. IV ONE
--- NOTE | 2019-01-15 11:32 | RAD ---
MR#: [id number] Date of Study: 01/15/2019 Ordering Physician: VINNY PORRAS Referring Physician: TRE DOAN Tech: RT Darin (R) (N) APPROVED REPORT Test Type: Pharmacological Stress Nurse/Tech: Fouzia Cespedes R.N. Test Indications: PAD Cardiac History: htn, dm Medications: see attached list Medical History: see ehr Resting ECG: sr with PAC noted Resting Heart Rate: 64 bpm Resting Blood Pressure: 144/53mmHg Pretest Chest Pain: No chest pain Nurse/Tech Notes lungs cta, heart tones regular Consent: The procedure was explained to the patient in lay terms. Informed consent was witnessed. Sanjay eout was entered into [employer] History and Stress Test performed by ADAM Beckman Pharm. Details Pharmacologic stress testing was performed using 0.4mg per 5ml of regadenoson given intravenously ove r 7-10 seconds. Stress Symptoms No chest pain or symptoms. POST EXERCISE Reason for Termination: Infusion complete Target HR: No Max HR: 64 bpm Max Blood Pressure: 144/53mmHg Chest Pain: No. Arrhythmia: No. ST Change: No. INTERPRETATION Stress EKG Conclusion: No evidence of stress induced EKG changes. Imaging Protocol IMAGE PROTOCOL: Rest Tc-99m/stress Tc-99m 1 day Rest: Stress: Viability: Radiopharm.Tc99m ZcosayuquTr10w Sestamibi Laof90bEv 33mCi Duration 13min. 13min. Img Date 01/15/2019 01/15/2019 Inj-Img Aqdo04qlo. 60min. Rest Admin Site:IV - Right AntecubitalAdministrator:RT Jessi Webster)(N) Stress Admin Site: IV - Right AntecubitalAdministrator: ADAM Beckman STRESS DATA End Diast. Vol.78.0mlAv. Heart Rate87.0bpm LVEDV index BSA43.0mlCardiac Output0.0L/min End Syst. Vol.20.0mlCO Index BSA0.0L/min LVESV index BSA11.0mlMyocardial Vzux181.0g Eject. Eiegqmik05.0% Stress Scores Regional WT2.00Summed WT13.00 Regional WM0.00Summed WM8.00 LV Perfusion There is a fixed basal inferior and inferolateral defect most consistent with subdiaphragmatic attenu ation. No obvious ischemia noted. Wall Motion Normal wall motion. LV Perf. Quant 17 Seg. SSS5.00 17 Seg. SRS3.00 17 Seg. SDS3.00 Stress Defect Extent (% LAD)0.00Rest Defect Extent (% LAD)0.00Rev. Defect Extent (% LAD)0.00 Stress Defect Extent (% LCX) 23.80Rest Defect Extent (% LCX)12.50Rev. Defect Extent (% LCX)15.00 Stress Defect Extent (% RCA)10.00Rest Defect Extent (% RCA)0.00Rev. Defect Extent (% RCA)3.30 Stress Defect Extent (% GENESIS)7.60Rest Defect Extent (% GENESIS)2.20Rev. Defect Extent (% GENESIS)4.30 Other Information Quality:Average Risk Assessment: Low Risk Conclusion 1. No evidence of EKG changes with stress testing. 2. Normal perfusion at stress/rest. (Probable inferior attenuation artifact) 3. Low risk study. 4. EF > 60%. Signed by : Guevara Mcadams, Electronically Approved : 01/15/2019 11:31:22
== END | disposition home or self-care (01) ==
LOC: NM 07:27
PROVIDERS: ATTEND Internal Medicine Cardiovascular Disease
DX: I73.9 Peripheral vascular disease, unspecified (principal); I10 Essential (primary) hypertension; E11.9 Type 2 diabetes mellitus without complications
CPT/HCPCS: 78452; 93017; A9500; J2785

== ENCOUNTER → 2019-08-20 | Outpatient (CLI) | payer MEDICARE, BC ==
[2019-06-18 15:59] VITALS: BP 136/62
[~2019-08-20] MED LIST changes: +AMLO5TAB10 PO; +ASPI325T11 PO; +ATOR40TA59 PO; +DOCU-153 PO; +FURO40TA4 PO; -GLIM4TAB4 PO; +GLIM4TAB8 PO; +HYDR-2868 PO; +INSU100I11 SQ; +INSU100I13 SQ; +INSU100V8 SQ; +IPRA3AMP29 NEB; +ISOS30TA4 PO; +METO50TA4 PO; +NITR0.4T22 SL; +POTA20TA4 PO; -POTA20TA82 PO; -REGADENOSON 0.4 MG/5 ML DISP.SYRIN. IV ONE; +SODI44SP NS
--- NOTE | 2019-08-20 11:47 | CARD ---
MR#: [id number] Date of Study: 08/20/2019 Ordering Physician: VINNY PORRAS, Referring Physician: VINNY PORRAS Tech: Felicita Love RDCS APPROVED REPORT EXAM: Two-dimensional and M-mode echocardiogram with Doppler and color Doppler. Other Information Quality : Good INDICATION Hypertension/HCVD Wearing a Life Vest 2D DIMENSIONS RVDd2.8 (2.9-3.5cm)Left Atrium(2D)3.2 (1.6-4.0cm) IVSd1.3 (0.7-1.1cm)Aortic Root(2D)2.6 (2.0-3.7cm) LVDd3.8 (3.9-5.9cm)LVOT Diameter2.1 (1.8-2.4cm) PWd0.9 (0.7-1.1cm)LVDs3.1 (2.5-4.0cm) FS (%) 19.1 %SV25.3 ml LVEF(%)50.0 (>50%) Aortic Valve AoV Peak Erickson.149.6cm/sAoV VTI22.7cm AO Peak GR.9.0mmHgLVOT Peak Erickson.102.1cm/s AO Mean GR.5mmHgAVA (VMAX)2.28cm2 AMY (VTI)3.10cm2 Mitral Valve MV E Pwwepbsa96.0cm/sMV DECEL RRRE422qa MV A Uwumqzks865.5cm/sE/A Ratio0.5 Pulmonary Vein S1 Uxyyqzgs71.9cm/sD2 Momzjlko29.2cm/s LEFT VENTRICLE The left ventricle is normal size. There is mild asymmetric septal left ventricular hypertrophy. Left ventricle systolic function is normal. The Ejection Fraction is 50-55%. Transmitral Doppler flow pat tern is Grade I-abnormal relaxation pattern. RIGHT VENTRICLE The right ventricle is normal size. The right ventricular systolic function is normal. ATRIA The left atrium size is normal. The right atrium size is normal. The interatrial septum is intact wit h no evidence for an atrial septal defect or patent foramen ovale as noted on 2-D or Doppler imaging. AORTIC VALVE The aortic valve is calcified but opens well. Doppler and Color Flow revealed trace aortic regurgitat ion. There is no significant aortic valvular stenosis. MITRAL VALVE The mitral valve is calcified but opens well. There is no evidence of mitral valve prolapse. There is no mitral valve stenosis. Doppler and Color-flow revealed trace mitral regurgitation. TRICUSPID VALVE The tricuspid valve is normal in structure and function. Doppler and Color Flow revealed no tricuspid valve regurgitation noted. There is no tricuspid valve stenosis. PULMONIC VALVE The pulmonic valve is not well visualized. Doppler and Color Flow revealed no pulmonic valvular regur gitation. There is no pulmonic valvular stenosis. GREAT VESSELS The aortic root is normal in size. The ascending aorta is normal in size. The IVC is normal in size a nd collapses >50% with inspiration. PERICARDIAL EFFUSION There is no evidence of significant pericardial effusion. Critical Notification Critical Value: No <Conclusion> Left ventricle systolic function is normal. The Ejection Fraction is 50-55%. Transmitral Doppler flow pattern is Grade I-abnormal relaxation pattern. Doppler and Color-flow revealed trace mitral regurgitation. There is no evidence of significant pericardial effusion. Signed by : Vinny Porras, Electronically Approved : 08/20/2019 11:47:10
--- NOTE | 2019-08-20 12:28 | RAD ---
MR#: [id number] Date of Study: 08/20/2019 Ordering Physician: VINNY PORRAS, Referring Physician: VINNY PORRAS Tech: Tabatha Delgadillo RDMS, BRITNEYT, RTR APPROVED REPORT Patient Location: OUT-PATIENT Indications PAD Right Leg Pain Risk Factors History of Lower Extremity PAD: Bilaterally Diabetes In dwelling Left SFA and POP Artery Stent Surgery/Intervention Stent : Date : 2017 Site : Left SFA Mid and LT Pop A VELOCITY AND DOPPLER WAVEFORM ANALYSIS RIGHT cm/secWaveformSeverity LEFT cm/secWaveform Severity pCFA 64.9BiphasicpCFA 110.3Biphasic dCFA 483.0MonophasicSevere > 75%dCFA 143.1Biphasic Prof Fem Art. 18.3MonophasicProf Fem Art. 345.0MonophasicSevere > 75% Fem Art Prox. 39.5MonophasicFem Art Prox. 92.5Monophasic Fem Art Mid. 59.4MonophasicFem Art Mid. 357.6MonophasicSevere > 75% Fem Art Dist. 158.1MonophasicFem Art Dist. 157.1Monophasic Pop Art(AK) 88.7MonophasicPop Art(AK) 73.1Monophasic BABY FORMULA WORKER Prox. 27.6MonophasicPTA Prox. 22.2Monophasic BABY FORMULA WORKER Dist. 47.8MonophasicPTA Dist. OccludedOccluded (100%) Per Art Prox. 27.0MonophasicPer Art Prox. 47.0Monophasic MERLENE Prox. OccludedOccluded (100%)MELRENE Prox. OccludedOccluded (100%) DPA 15DPA 31Monophasic Findings Grayscale images of the bilateral lower extremity arterial vessels are notable for severe diffuse ines que. On the right side elevated velocities are noted at the level of the common femoral artery suggestive of a greater than 75% stenosis. There are diminished monophasic waveforms throughout the right lower extremity arterial course. There is probable moderate diffuse disease involving the SFA. Monophasi c waveforms with severely diminished velocities are noted in the below-knee vessels likely secondary to more proximal occlusion. There is likely an occluded anterior tibial artery at the distal segment . Posterior tibial and peroneal arteries appear to be patent. On the left side there is likely moderate to severe calcific disease involving the common femoral art sejal bifurcation and profunda vessels. Probable greater than 50% stenosis. There is also likely a gr eater than 75% stenosis involving the distal stent edge of a previously placed left mid to distal SFA stent. Monophasic waveforms are noted below the knee with an occluded posterior tibial artery and a n occluded anterior tibial artery. There is peroneal artery patency with monophasic waveforms and li michelle collateralization and patency of the dorsalis pedis artery. Critical Notification Critical Value: No <Conclusion> 1. Severe multilevel occlusive lower extremity arterial disease as noted above. Signed by : Guevara Mcadams, Electronically Approved : 08/20/2019 12:27:50
== END | disposition home or self-care (01) ==
LOC: US 08:35
PROVIDERS: ATTEND Internal Medicine Cardiovascular Disease
DX: I08.0 Rheumatic disorders of both mitral and aortic valves (principal); I70.203 Unspecified atherosclerosis of native arteries of extremities, bilateral legs; I11.9 Hypertensive heart disease without heart failure; E11.51 Type 2 diabetes mellitus with diabetic peripheral angiopathy without gangrene; M79.604 Pain in right leg
CPT/HCPCS: 93306; 93925

== ENCOUNTER → 2019-10-24 | Outpatient (CLI) | payer MEDICARE, BC ==
[2019-06-18 15:59] VITALS: BP 136/62
[~2019-10-24] MED LIST changes: +IRON15TA3 PO; +MV-M1TAB7 PO
== END | disposition home or self-care (01) ==
LOC: LAB 13:33
PROVIDERS: ATTEND Internal Medicine Cardiovascular Disease
DX: Z11.59 Encounter for screening for other viral diseases (principal)
CPT/HCPCS: U0003-CS

== ENCOUNTER 2019-10-28 08:13 | Outpatient (CLI) | payer MEDICARE, BC ==
[~2019-10-28] VITALS: Ht 167.6 cm; Wt 59.0 kg
[2019-10-28] VITALS (11 sets, daily range): BP systolic 149–166; BP diastolic 62–84
[~2019-10-28 08:13] MED LIST changes: -IRON15TA3 PO; -MV-M1TAB7 PO
[2019-10-28] MEDS ORDERED: LIDOCAINE 1% Multi-Dose 20 ML VIAL. ONE (08:14)
[2019-10-28] MEDS ORDERED: IODIXANOL 320 MG/ML 100 ML VIAL. ONE (08:15)
[2019-10-28] MEDS ORDERED: HEPARIN for IV BOLUS 10,000 UNIT/10 ML VIAL. ONE (09:12)
[2019-10-28] MEDS ORDERED: fentaNYL PF VIAL 100 MCG/2 ML VIAL ONE (09:12)
[2019-10-28] MEDS ORDERED: MIDAZOLAM HCL/PF 2 MG/2 ML VIAL. ONE (09:12)
[2019-10-28] MEDS ORDERED: fentaNYL PF VIAL 100 MCG/2 ML VIAL IV ONE (09:15)
[2019-10-28] MEDS ORDERED: MIDAZOLAM HCL/PF 2 MG/2 ML VIAL. IV ONE (09:15)
[2019-10-28] MEDS ORDERED: LIDOCAINE 1% Multi-Dose 20 ML VIAL. INJ ONE (09:15)
[2019-10-28] MEDS ORDERED: IODIXANOL 320 MG/ML 100 ML VIAL. IART ONE (09:15)
[2019-10-28] MEDS ORDERED: CONTRAST GIVEN. MC PRN (09:30)
[2019-10-28 09:58] LABS: CALCIUM 9.2 mg/dL (8.5-10.1)
[2019-10-28 09:59] LABS: CREATININE 1.4 mg/dL (0.7-1.3); GFR 58.7
[2019-10-28 10:00] LABS: BASO % 0 % (0-3); EOS # 0.2 x10^3/uL (0.0-0.7); EOS % 3 % (0-3); HEMATOCRIT 35.5 % (39.0-53.0); HEMOGLOBIN 11.4 g/dL (13.0-17.5); LYMPH # 1.5 x10^3/uL (1.0-4.8); LYMPH % 19 % (24-48); MEAN CORPUSCULAR HEMOGLOBIN 23 pg (25-35); MEAN CORPUSCULAR HGB CONC 32 g/dL (31-37); MEAN CORPUSCULAR VOLUME 71 fL (79-100); MONO # 0.8 x10^3/uL (0.0-1.1); MONO % 10 % (0-9); NEUT # 5.5 x10^3/uL (1.8-7.7); NEUT % 68 % (31-73); PLATELET COUNT 435 x10^3/uL (140-400); RED BLOOD COUNT 4.97 x10^6/uL (4.30-5.70); RED CELL DISTRIBUTION WIDTH 20.9 % (11.5-14.5); WHITE BLOOD COUNT 8.1 x10^3/uL (4.0-11.0)
[2019-10-28 10:01] LABS: PROTHROMBIN TIME PATIENT 13.5 SEC (11.7-14.0)
[2019-10-28] MEDS ORDERED: IV 1/2 NORMAL SALINE 1,000 ML IV SCH (10:49)
--- NOTE | 2019-10-28 10:49 | PDOC ---
MODERATE SEDATION ASSESSMENT RISKS/ALTERNATIVES Risks/Alternatives Risks and alternatives of this type of sedation and procedure discussed with: RISK/ALTERNATIVES: Patient H & P ON CHART H & P H & P on chart and reviewed for co-morbid conditions and appropriate labs. H&P ON CHART: Yes STATUS PREG STATUS ASSESSED: N/A MEDS/ALLERGIES REVIEWED Meds/Allergies Reviewed Medications and Allergies including time and route of recently administered narcotics and sedatives. MEDS/ALLERGIES REVIEWED: Yes ASA RATING ASA RATING: III AIRWAY ASSESSMENT Airway Assessment Airway patency, oral function limitations, presence of caps, crowns, dentures, partials, and ability to extend neck assessed. AIRWAY ASSESSMENT: Yes MALLAMPATI SCORE MALLAMPATI SCORE: II PRE-SEDATION ASSESSMENT PRE-SEDATION ASSESSMENT: Yes VINNY PORRAS MD Oct 28, 2019 10:49
[2019-10-28] MEDS ORDERED: MV-M1TAB7 PO (11:23)
[2019-10-28] MEDS ORDERED: IRON15TA3 PO (11:23)
[2019-10-28 11:58] LABS: ANISOCYTOSIS SLIGHT; PLT ESTIMATE INCREASED (ADEQUATE)
--- NOTE | 2019-10-28 13:34 | CARD ---
MR#: [id number] Date of Study: 10/28/2019 Ordering Physician: VINNY FISCHER, Referring Physician: VINNY FISCHER, Tech: RT Brenda (R) APPROVED REPORT Patient StatusOUT-PATIENT Manager Lvn: Jennifer Wilkerson RT (R) Procedure(s) performed: Aortogram with bilateral lower extremity runoff FLOURO TIME 6.9 MINUTES DOSE 53.41 Gycm2 CONTRAST 151 VISIPAQUE MODERATE SEDATION 50 MINUTES INDICATION FOR PROCEDURE The indication(s) include : Peripheral artery disease with claudication. PROCEDURE NARRATIVE After explaining the risks, benefits and alternative options, informed consent was obtained for patie nt. Patient was brought to the cardiac Corporate Consultant and both his groins were prepped and draped in the u sual fashion. 20 cc of 2% lidocaine was infiltrated into the skin and subcutaneous tissues of the le ft groin for local anesthesia. Arterial access was obtained in the left common femoral artery and a 5 Bengali sheath was inserted. 5 Bengali Omni Flush catheter was then used to perform aortogram with b ilateral lower extremity runoff. This was advanced over the aortic papa and with the tip position in the right external iliac artery, selective right lower extremity angiography was performed. Contr ast injections were performed through the sheath in the left groin for selective left lower extremity angiography. Patient tolerated the procedure well. Hemostasis was achieved using Mynx closure debra ce. There were no immediate complications. FINDINGS 1. Infrarenal abdominal aortic aneurysm with dissection causing 80% luminal obstruction with 20 mm p ullback gradient across it. This was described in prior aortogram. 2. The left common iliac artery showed 30% ostial stenosis. The right common iliac artery did not s how any significant stenosis. 3. The external iliac arteries bilaterally did not show any significant stenosis. 4. The right common femoral artery showed a discrete and eccentric shelflike lesion causing 90% sten osis. The left common femoral artery did not show any significant stenosis. 5. The right superficial femoral artery showed calcified 70% stenosis in the distal segment. The le ft superficial femoral artery showed 90% in-stent restenosis in the midsegment and a long 70% stenosi s distal to the stent. The previously placed stent in the distal segment is patent. 6. The popliteal arteries bilaterally did not show any significant stenosis. 7. The right anterior tibial artery showed long chronic total occlusion. The right posterior tibial artery showed 100% chronic occlusion in the proximal segment with reconstitution via collaterals in the midsegment with good distal flow beyond that. The right peroneal artery is patent but showed mod erate diffuse disease. 8. The left peroneal artery did not show any significant stenosis. The left anterior tibial artery showed long chronic total occlusion. The left posterior tibial artery showed long chronic total occl usion with reconstitution from collaterals in the very distal segment. Conclusion 1. Severe bilateral lower extremity peripheral artery disease as described above. 2. Infrarenal abdominal aortic aneurysm with dissection causing 80% stenosis, described in prior ang iography and managed conservatively by vascular surgery. Recommendations Vascular surgery referral for possible surgical revascularization of symptomatic bilateral lower extr emity PAD. Signed by : Vinny Fischer, Electronically Approved : 10/28/2019 13:34:09
--- NOTE | 2019-10-28 14:47 | NUR ---
pt discharged to home with family. Discharge instructions reviewed with patient. Pt ambulated and tolerated PO. PIV dc'd
== END 2019-10-28 14:48 | disposition home or self-care (01) ==
LOC: CCL 08:13
PROVIDERS: ATTEND Internal Medicine Cardiovascular Disease
DX: I73.9 Peripheral vascular disease, unspecified (principal); I50.9 Heart failure, unspecified; I73.89 Other specified peripheral vascular diseases; I71.4 Abdominal aortic aneurysm, without rupture; I25.10 Atherosclerotic heart disease of native coronary artery without angina pectoris; Z79.82 Long term (current) use of aspirin; Z79.899 Other long term (current) drug therapy
CPT/HCPCS: 36246; 36415; 75630; 80048; 85025; 85610; 99152; 99153; C1760; C1769; C1892; J1644; J2250; J3010; J3490; Q9967; G0269; C1771

== ENCOUNTER → 2020-09-28 | Outpatient (CLI) | payer MEDICARE, BC ==
[2019-10-28 14:00] VITALS: BP 166/84
[~2020-09-28] MED LIST changes: +AMLO-186 PO; +AMLO-187 PO; -AMLO10TA8 PO; -AMLO5TAB10 PO; +IRON15TA3 PO; -ISOS30TA4 PO; +ISOS30TA68 PO; -LISI-334 PO; +LISI20TA18 PO; +MV-M1TAB7 PO; +REGADENOSON 0.4 MG/5 ML DISP.SYRIN. IV ONE
--- NOTE | 2020-09-29 10:12 | CARD ---
MR#: [id number] Date of Study: 09/28/2020 Ordering Physician: VINNY PORRAS, Referring Physician: Christofer DOAN: Monica Ramon [facility] APPROVED REPORT EXAM: Two-dimensional and M-mode echocardiogram with Doppler and color Doppler. Other Information Quality : GoodHR: 65bpm Rhythm : NSR INDICATION Cardiac Disease: CAD RISK FACTORS Hypertension 2D DIMENSIONS RVDd3.4 (2.9-3.5cm)Left Atrium(2D)3.5 (1.6-4.0cm) IVSd0.9 (0.7-1.1cm)Aortic Root(2D)2.5 (2.0-3.7cm) LVDd4.9 (3.9-5.9cm)LVOT Diameter2.2 (1.8-2.4cm) PWd1.1 (0.7-1.1cm)LVDs3.8 (2.5-4.0cm) FS (%) 21.9 %SV49.1 ml Aortic Valve AoV Peak Erickson.141.2cm/Alise Peak GR.8.7mmHg LVOT Peak Erickson.68.6cm/sAVA (VMAX)1.86cm2 Mitral Valve MV E Iuoexlnt56.6cm/sMV DECEL ALHL570ok MV A Zcgbexsz061.2cm/sE/A Ratio0.5 Pulmonary Valve PV Peak Wvbkpqkq51.6cm/s Tricuspid Valve TR P. Uglaevll248rq/sRAP DHYHZXTX1ieKo TR Peak Gr.08nnGqVIET09vvJv Pulmonary Vein S1 Lhdsckwt41.7cm/sD2 Rwkgbgil75.9cm/s PVa bseztdic449zslb LEFT VENTRICLE The Left Ventricle is mildly dilated. There is mild concentric left ventricular hypertrophy. Left trey tricular systolic function is mild to moderately decreased. LV ejection fraction of 35 to 40%. There is global hypokinesis of the left ventricle. Tissue Doppler imaging reveals abnormal left ventricular diastolic dysfunction. No left ventricle thrombus noted on this study. There is no ventricular septa l defect visualized. There is no left ventricular aneurysm. There is no mass noted in the left ventri román. RIGHT VENTRICLE The right ventricle is normal size. There is normal right ventricular wall thickness. The right ventr icular systolic function is normal. ATRIA The left atrium size is normal. The right atrium size is normal. The interatrial septum is intact wit h no evidence for an atrial septal defect or patent foramen ovale as noted on 2-D or Doppler imaging. AORTIC VALVE The aortic valve is normal in structure and function. Doppler and Color Flow revealed mild aortic reg urgitation. There is no aortic valvular stenosis. There is no aortic valvular vegetation. MITRAL VALVE The mitral valve is normal in structure and function. There is no evidence of mitral valve prolapse. There is no mitral valve stenosis. Doppler and Color-flow revealed trace to mild mitral regurgitation . TRICUSPID VALVE The tricuspid valve is normal in structure and function. Doppler and Color Flow revealed mild tricusp id regurgitation. PAP 27 mmHg. There is no tricuspid valve prolapse or vegetation. There is no tricus pid valve stenosis. PULMONIC VALVE The pulmonary valve is normal in structure and function. There is no pulmonic valvular regurgitation. There is no pulmonic valvular stenosis. GREAT VESSELS The aortic root is normal in size. The ascending aorta is normal in size. The pulmonary artery is nor mal. The IVC is normal in size and collapses >50% with inspiration. PERICARDIAL EFFUSION There is no pleural effusion. The pericardium appears normal. Critical Notification Critical Value: No <Conclusion> The Left Ventricle is mildly dilated. Left ventricular systolic function is mild to moderately decreased. LV ejection fraction of 35 to 40%. There is global hypokinesis of the left ventricle. There is mild concentric left ventricular hypertrophy. Doppler and Color Flow revealed mild aortic regurgitation. There is no aortic valvular stenosis. Doppler and Color-flow revealed trace to mild mitral regurgitation. Doppler and Color Flow revealed mild tricuspid regurgitation. PAP 27 mmHg. Signed by : Richard Kitchen MD Electronically Approved : 09/29/2020 10:11:11
--- NOTE | 2020-09-29 11:06 | RAD ---
MR#: [id number] Date of Study: 09/28/2020 Ordering Physician: VINNY PORRAS, Referring Physician: TRE DOAN Tech: WAYLON Crowder, ARRT (R) (N) APPROVED REPORT Test Type: Pharmacological Stress Nurse/Tech: Fouzia Cespedes R.N. Test Indications: cad Cardiac History: cad, stents, htn, dm Medications: see print out Medical History: see ehr Resting ECG: SR Resting Heart Rate: 61 bpm Resting Blood Pressure: 162/79mmHg Pretest Chest Pain: No chest pain Nurse/Tech Notes lungs cta, heart tones regular Consent: The procedure was explained to the patient in lay terms. Informed consent was witnessed. Sanjay eout was entered into [facility]. History and Stress Test performed by Fouzia Cespedes R.N. Pharm. Details Pharmacologic stress testing was performed using 0.4mg per 5ml of regadenoson given intravenously ove r 7-10 seconds. Stress Symptoms No chest pain or symptoms. POST EXERCISE Reason for Termination: Infusion complete Target HR: No Max HR: 95 bpm Max Blood Pressure: 162/79mmHg Chest Pain: No. Arrhythmia: No. ST Change: No. INTERPRETATION Stress EKG Conclusion: The resting EKG shows a sinus rhythm and slight nonspecific ST-T wave changes. The stress EKG shows no significant changes from baseline. No EKG evidence of stress-induced ischemia. Imaging Protocol IMAGE PROTOCOL: Rest Tc-99m/stress Tc-99m 1 day Rest: Stress: Viability: Radiopharm.Tc99m WwvgorobqEi28a Sestamibi Jvsw39fGt 31.4mCi Img Date 09/28/2020 09/28/2020 Inj-Img Tmik33qzy. 60min. Rest Admin Site:IV - Right AntecubitalAdministrator:RT Darin (R)(N) Stress Admin Site: IV - Right AntecubitalAdministrator: RT Darin (R)(N) STRESS DATA End Diast. Vol.136.0mlAv. Heart Rate86.0bpm End Syst. Vol.77.0mlCO Index BSA5.1L/min Myocardial Lhxp597.0gEject. Rimrgerf49.0% Stress Rates Pk. Fill Rate1.36EDV/secLVtime Pk. Fill 78.93msec Pk. Empty Rate2.82ESV/secLVtime Pk. Isudj157.07msec 1/3 Pk. Fill0.96EDV/sec Stress Scores Regional WT2.00Summed WT20.00 Regional WM0.00Summed WM26.00 LV Perfusion The stress scans show a small defect in the inferior lateral wall. The rest scans show a small defect in the inferior lateral wall. Nuclear imaging shows a probable prior infarct in the inferior lateral wall with mild laxmi-infarct re versibility. Wall Motion Left ventricular wall function is mildly decreased with an ejection fraction of 41% and inferior late ral hypokinesis. LV Perf. Quant 17 Seg. SSS4.00 17 Seg. SRS1.00 17 Seg. SDS3.00 Stress Defect Extent (% LAD)1.90Rest Defect Extent (% LAD)0.00Rev. Defect Extent (% LAD)1.90 Stress Defect Extent (% LCX) 16.30Rest Defect Extent (% LCX)13.80Rev. Defect Extent (% LCX)3.80 Stress Defect Extent (% RCA)7.80Rest Defect Extent (% RCA)3.30Rev. Defect Extent (% RCA)1.10 Stress Defect Extent (% GENESIS)9.80Rest Defect Extent (% GENESIS)4.30Rev. Defect Extent (% GENESIS)4.60 Conclusion 1. No EKG evidence of stress-induced ischemia. 2. Nuclear imaging shows a prior infarct in the inferior lateral wall with mild laxmi-infarct reversib le ischemia. 3. Left ventricular systolic function is decreased with an ejection fraction of 41% and hypokinesis i n the inferior lateral wall. 4. Moderate to moderately low risk Lexiscan nuclear stress test showing a previous infarct in the inf erior lateral wall and an ejection fraction of 41%. Signed by : Richard Kitchen MD Electronically Approved : 09/29/2020 11:06:14
== END ==
LOC: NM 08:12
PROVIDERS: ATTEND Internal Medicine Cardiovascular Disease
DX: I08.3 Combined rheumatic disorders of mitral, aortic and tricuspid valves (principal); I25.10 Atherosclerotic heart disease of native coronary artery without angina pectoris; I10 Essential (primary) hypertension
CPT/HCPCS: 78452; 93017; 93306; A9500; J2785

== ENCOUNTER → 2021-04-11 | Outpatient (CLI) | payer MEDICARE, BC ==
[2019-10-28 14:00] VITALS: BP 166/84
[~2021-04-11] MED LIST changes: +DOCU-148 PO; -DOCU-153 PO; -REGADENOSON 0.4 MG/5 ML DISP.SYRIN. IV ONE
--- NOTE | 2021-04-12 18:51 | CARD ---
MR#: [id number] Date of Study: 04/11/2021 Ordering Physician: VINNY PORRAS, Referring Physician: VINNY PORRAS, Tech: Grecia Padilla DEIDRA APPROVED REPORT EXAM: Two-dimensional and M-mode echocardiogram with Doppler and color Doppler. Other Information Quality : GoodHR: 60bpm Rhythm : NSR INDICATION Cardiac Disease: CAD RISK FACTORS Hypertension 2D DIMENSIONS RVDd3.2 (2.9-3.5cm)Left Atrium(2D)3.5 (1.6-4.0cm) IVSd1.0 (0.7-1.1cm)Aortic Root(2D)2.9 (2.0-3.7cm) LVDd4.8 (3.9-5.9cm)LVOT Diameter1.9 (1.8-2.4cm) PWd1.0 (0.7-1.1cm)LVDs3.3 (2.5-4.0cm) FS (%) 32.0 %SV65.8 ml LVEF(%)60.0 (>50%) Aortic Valve AoV Peak Erickson.151.9cm/sAoV VTI32.5cm AO Peak GR.9.2mmHgLVOT Peak Erickson.76.7cm/s AO Mean GR.4mmHgAVA (VMAX)1.42cm2 Mitral Valve MV E Xxnexqfr47.4cm/sMV DECEL FSZP236zy MV A Lcirnunz964.1cm/sE/A Ratio0.6 Pulmonary Valve PV Peak Uiicesny63.5cm/s Tricuspid Valve TR P. Doyqkqoq871ad/sTR Peak Gr.21mmHg LEFT VENTRICLE The left ventricle is normal size. There is normal left ventricular wall thickness. There is moderate LV systolic dysfunction. EF 35% Septal motion suggestive of conduction defect. Otherwise, there is m oderate global LV hypokinesis. Transmitral Doppler flow pattern is Grade I-abnormal relaxation patter n. RIGHT VENTRICLE The right ventricle is normal size. There is normal right ventricular wall thickness. The right ventr icular systolic function is normal. ATRIA The left atrium size is normal. The right atrium size is normal. The interatrial septum is intact wit h no evidence for an atrial septal defect or patent foramen ovale as noted on 2-D or Doppler imaging. AORTIC VALVE The aortic valve is normal in structure and function. Doppler and Color Flow revealed no significant aortic regurgitation. There is no significant aortic valvular stenosis. MITRAL VALVE The mitral valve is normal in structure and function. There is no evidence of mitral valve prolapse. There is no mitral valve stenosis. Doppler and Color-flow revealed trace mitral regurgitation. TRICUSPID VALVE The tricuspid valve is normal in structure and function. Doppler and Color Flow revealed mild tricusp id regurgitation. Estimated PAP 20-25 mmHg. There is no tricuspid valve stenosis. PULMONIC VALVE Doppler and Color Flow revealed no pulmonic valvular regurgitation. There is no pulmonic valvular michelle nosis. GREAT VESSELS The aortic root is normal in size. The ascending aorta is normal in size. The IVC is normal in size a nd collapses >50% with inspiration. PERICARDIAL EFFUSION There is no evidence of significant pericardial effusion. Critical Notification Critical Value: No <Conclusion> There is moderate LV systolic dysfunction. EF 35% Septal motion suggestive of conduction defect. Otherwise, there is moderate global LV hypokinesis. Signed by : Guevara Mcadams, Electronically Approved : 04/12/2021 18:50:35
== END ==
LOC: ECHO 08:53
PROVIDERS: ATTEND Internal Medicine Cardiovascular Disease
DX: I07.1 Rheumatic tricuspid insufficiency (principal); I25.5 Ischemic cardiomyopathy; I25.10 Atherosclerotic heart disease of native coronary artery without angina pectoris
CPT/HCPCS: 93306

== ENCOUNTER 2021-05-30 09:08 | Observation (INO) | payer MEDICARE, BC ==
[~2021-05-30] VITALS: Ht 167.6 cm; Wt 63.6 kg
[~2021-05-30 09:08] MED LIST changes: +HYDROmorphone 2 MG/ML INJ. IVP PRN; +IV RINGERS,LACTATED 1000ML 1,000 ML IV SCH; +MORPHINE SULFATE 2 MG/ML INJ. IVP PRN; +PROCHLORPERAZINE 10 MG/2 ML VIAL. IVP PRN; +fentaNYL PF VIAL 100 MCG/2 ML VIAL IVP PRN
[2021-05-30] MEDS ORDERED: ceFAZolin SODIUM 1 GM in IV NORMAL SALINE 100ML 100 ML IRR ONE (09:15)
[2021-05-30] MEDS ORDERED: ATOR10TA60 PO (09:28)
[2021-05-30] MEDS ORDERED: ALLO300T PO (09:28)
--- NOTE | 2021-05-30 09:41 | EKG ---
[facility] [address] [place] [address] Test Date: 2021-05-30 Test Time: 09:37:31 Pat Name: MARIA DEL ROSARIO LOVELL Department: Room: Gender: Regional [employer]icated [employer]: [place] : 1935 Requested By: VINNY FISCHER Order Number: [id number] Reading MD: Vinny Fischer Measurements Intervals Vega Rate: 78 P: 31 GA: 176 QRS: 23 QRSD: 82 T: 19 QT: 364 QTc: 418 Interpretive Statements SINUS RHYTHM QRS(T) CONTOUR ABNORMALITY CONSISTENT WITH INFERIOR INFARCT PROBABLY OLD Electronically Signed On 05-31-2021 19:29:17 J2EE APPLICATION DEVELOPER by Vinny Fischer
[2021-05-30] MEDS ORDERED: GLIP10TA13 PO (09:43)
[2021-05-30] MEDS ORDERED: METO-239 PO (09:43)
[2021-05-30] MEDS ORDERED: CETI10TA16 PO (09:43)
[2021-05-30] MEDS ORDERED: TRAM50TA PO (09:43)
[2021-05-30] MEDS ORDERED: AMLO-187 PO (09:43)
[2021-05-30] MEDS ORDERED: SAW450CA7 PO (09:49)
[2021-05-30] MEDS ORDERED: CHOL5000 PO (09:49)
[2021-05-30] MEDS ORDERED: CYAN-25 PO (09:49)
[2021-05-30 10:00] LABS: HEMATOCRIT 40.4 % (39.0-53.0); HEMOGLOBIN 13.3 g/dL (13.0-17.5); RED BLOOD COUNT 4.91 x10^6/uL (4.30-5.70); WHITE BLOOD COUNT 8.5 x10^3/uL (4.0-11.0)
[2021-05-30 10:02] VITALS: BP 188/80
[2021-05-30 10:12] LABS: PROTHROMBIN TIME PATIENT 13.1 SEC (11.7-14.0)
[2021-05-30] MEDS ORDERED: PROPOFOL 50 ML IV ONE (10:16)
[2021-05-30] MEDS ORDERED: ePHEDrine PF IN SALINE 50 MG/10 ML SYRINGE. IV ONE (10:16)
[2021-05-30] MEDS ORDERED: PROPOFOL 10 MG/ML (20ML) VIAL. IV ONE (10:16)
[2021-05-30] MEDS ORDERED: PHENYLEPHRINE in 0.9% NACL PF 1 MG/10 ML SYRINGE. IV ONE (10:16)
[2021-05-30] MEDS ORDERED: ETOMIDATE 20 MG/10 ML VIAL. IV ONE (10:16)
[2021-05-30] MEDS ORDERED: ONDANSETRON PF 4 MG/2 ML VIAL. ONE (10:16)
[2021-05-30] MEDS ORDERED: DEXAMETHASONE SOD PHOS 4 MG/ML VIAL ONE (10:16)
[2021-05-30] MEDS ORDERED: KETAMINE HCL IN NACL, ISO-OSM 50 MG/5 ML SYRINGE ONE (10:17)
[2021-05-30 10:23] LABS: CALCIUM 8.7 mg/dL (8.5-10.1); CREATININE 1.3 mg/dL (0.7-1.3); GFR 63.6; POTASSIUM 4.1 mmol/L (3.5-5.1)
[2021-05-30] MEDS ORDERED: LIDOCAINE 2%/EPI 1:100,000 20 ML VIAL. ONE (10:26)
[2021-05-30] MEDS ORDERED: ceFAZolin SODIUM IV Push 1 GM VIAL. IVP ONE ×3 (10:35→17:00)
[2021-05-30] MEDS ORDERED: IODIXANOL 320 MG/ML 100 ML VIAL. ONE (11:04)
[2021-05-30] MEDS ORDERED: LIDOCAINE 2%/EPI 1:100,000 20 ML VIAL. IJ ONE (11:30)
[2021-05-30] MEDS ORDERED: IODIXANOL 320 MG/ML 100 ML VIAL. IART ONE (11:30)
[2021-05-30 11:49] VITALS: BP 117/61
--- NOTE | 2021-05-30 12:16 | RAD ---
EXAMINATION: Chest radiograph. VIEWS: Single AP view of the chest COMPARISON: None INDICATION:86 years, Male, post AICD placement. FINDINGS: Left chest dual lead cardiac pacing device is in normal position. Normal cardiomediastinal silhouette . No focal consolidation. No pleural effusion or pneumothorax. No acute osseous process. IMPRESSION: Post AICD placement with no immediate postprocedural complication. Electronically signed by: Kin Silverman DO (05/30/2021 12:14 PM) [facility]
[2021-05-30] MEDS ORDERED: IV RINGERS,LACTATED 1000ML 1,000 ML IV SCH (12:30)
[2021-05-30] MEDS ORDERED: INSULIN LISPRO 100 UNIT/ML 3ML VIAL for OP,RR ONLY. SQ PRN (12:45)
[2021-05-30 13:46] VITALS: BP 157/77
--- NOTE | 2021-05-30 14:42 | CARD ---
MR#: [id number] Date of Study: 05/30/2021 Ordering Physician: JUAN JOSE FISCHER, Referring Physician: JUAN JOSE FISCHER, Tech: APPROVED REPORT EXAM Implantation of Medtronic dual-chamber automated implantable cardioverter defibrillator Defibrillation thresholds measurement at the time of implantation SEDATION ADMINISTERED BY ANASTHESIA FLUORO TIME: 4.0 MIN DOSE: 3.8 GYCM2 CONTRAST: 17CC VISI INDICATIONS Primary prevention of sudden cardiac in a patient with ischemic cardiomyopathy, chronic systoli c heart failure with EF 35% despite optimal medical therapy PROCEDURE After explaining the risks, benefits, and alternative options, informed consent was obtained from the patient. During this case, Fluoroscopy and low osmolar contrast were used for imaging. Specimen(s) Removed: No Estimated Blood loss: 15 cc's. 30 cc of 2% lidocaine was infiltrated into the skin and subcutaneous tissues for local anesthesia. I nitial attempts to obtain left subclavian vein access using radiological landmarks were unsuccessful. Contrast injections were performed through peripheral IV for left SC venogram. Access was then suc cessfully obtained and 11 and 7 Serbian sheaths were inserted in the left subclavian vein. A Medtronic bipolar active fixation right ventricular lead model 6542Q98, serial number [id number] wa s then advanced under fluoroscopic guidance and the tip was positioned in the right ventricular apex. Subsequently, a Medtronic bipolar active-fixation right atrial lead model 108419, serial number [id number] was position in the right atrial appendage. The leads were secured into place and were arlene ched to a Medtronic dual-chamber AICD generator model [id number], serial number [id number]. This was pl aced in the pocket that was subsequently closed in 3 layers. Hemostasis was secured. Ventricular fibrillation was then induced to check the defibrillation thresholds. Patient successful ly converted to sinus rhythm with 15 J shock therapy with a shock impedance of 71 ohms. The right ve ntricular lead showed a sensing amplitude of 13.4 mV, impedance of 571 ohms and a threshold of 0.7 V. The right atrial lead showed a sensing amplitude of 2.9 mV, impedance of 950 ohms and a threshold o f 1.0 V. Patient tolerated the procedure well. There were no immediate complications. CONCLUSION Successful implantation of Medtronic dual-chamber automated implantable cardioverter defibrillator fo r primary prevention of sudden cardiac in a patient with ischemic cardiomyopathy. Defibrillati on thresholds were measured at the time of implantation. Signed by : Juan Jose Fischer, Electronically Approved : 05/30/2021 14:41:58
[2021-05-30] MEDS ORDERED: traMADol 50 MG TABLET PO PRN (14:45)
[2021-05-30] MEDS ORDERED: IPRATRPIUM/ALBUTEROL 0.5/2.5MG 3 ML NEBU. NEB SCH (18:00)
--- NOTE | 2021-05-30 19:15 | NUR ---
pt in bed assessment completed pt c/o pain at pacemaker site, ice applied will medicate pt.Call light placed in reach will resume care and continue to monitor pt.
[2021-05-30 19:16] VITALS: BP 170/84
[2021-05-30] MEDS: HYDROcodone/APAP 5/325MG 1 TAB TABLET PO PRN ×2 (19:39→23:47)
[2021-05-30] MEDS: hydrALAZINE 25 MG TABLET PO SCH (20:22)
[2021-05-30] MEDS: IPRATRPIUM/ALBUTEROL 0.5/2.5MG 3 ML NEBU. NEB SCH (20:50)
[2021-05-30 22:45] VITALS: BP 149/68
[2021-05-31 03:20] VITALS: BP 159/78
[2021-05-31 07:00] VITALS: BP 168/73
[2021-05-31] MEDS: IPRATRPIUM/ALBUTEROL 0.5/2.5MG 3 ML NEBU. NEB SCH ×2 (07:11→11:20)
[2021-05-31] MEDS ORDERED: PANTOPRAZOLE 40 MG TABLET.DR. PO SCH (07:30)
[2021-05-31] MEDS: hydrALAZINE 25 MG TABLET PO SCH (08:13)
[2021-05-31] MEDS: HYDROcodone/APAP 5/325MG 1 TAB TABLET PO PRN (08:28)
[2021-05-31] MEDS ORDERED: CLOPIDOGREL BISULFATE 75 MG TABLET PO SCH (09:00)
[2021-05-31] MEDS ORDERED: METOPROLOL SUCC 24HR ER 25 MG TAB.ER.24H. PO SCH (09:00)
[2021-05-31] MEDS ORDERED: ASPIRIN CHEWABLE 81 MG TABLET. PO SCH (09:00)
[2021-05-31] MEDS ORDERED: POTASSIUM CHLORIDE 20 MEQ TABLET.ER. PO SCH (09:00)
[2021-05-31] MEDS ORDERED: ATORVASTATIN CALCIUM 10 MG TABLET. PO SCH (09:00)
[2021-05-31] MEDS ORDERED: CETIRIZINE HCL 10 MG TABLET. PO SCH (09:00)
[2021-05-31] MEDS ORDERED: CYANOCOBALAMIN (VITAMIN B-12) 1,000 MCG TABLET. PO SCH (09:00)
[2021-05-31] MEDS ORDERED: ISOSORBIDE MONONITRATE ER 30 MG TAB.ER.24H PO SCH (09:00)
[2021-05-31] MEDS ORDERED: IRON CARBONYL PO SCH (09:00)
[2021-05-31] MEDS ORDERED: glipiZIDE 5 MG TABLET PO SCH (09:00)
[2021-05-31] MEDS ORDERED: CHOLECALCIFEROL (VITAMIN D3) 5,000 UNIT CAPSULE PO SCH (09:00)
[2021-05-31] MEDS ORDERED: ALLOPURINOL 300 MG TABLET. PO SCH (09:00)
[2021-05-31] MEDS ORDERED: NON FORMULARY ITEM (Mv-Mn/Iron/Fa/Herbal Cmplx#190 (Vitamin D3 Complete Caplet) 1 EACH) PO SCH (09:00)
[2021-05-31 10:22] VITALS: BP 146/66
--- NOTE | 2021-05-31 11:13 | RAD ---
XR CHEST 2V 05/31/2021 Reason: 1 day post pacemaker implantation Comparison: Chest radiograph 05/30/2021 Technique: PA and lateral radiographs the chest Findings: No acute consolidation. No pleural effusion or pneumothorax. The cardiomediastinal silhouette is stab le. A dual-lead pacer device overlies the left chest with leads overlying the right heart. The aorta is mildly tortuous. Impression: 1. No acute cardiopulmonary process. 2. No evidence of postprocedural complication. Electronically signed by: Krish Pérez (05/31/2021 11:11 AM) [id number]
--- NOTE | 2021-05-31 12:23 | NUR ---
SS following for discharge planning. SS reviewed pt chart and discussed with pt RN. Pt is from home with spouse and is currently on room air. Cardiology following. Pt had defibrillator placed on 05/30/2021. SS will continue to follow for discharge planning.
--- NOTE | 2021-05-31 12:29 | PDOC3 ---
YANIQUE PERSAUD [employer] 05/31/21 1229: Discharge Summary Visit Information Date of Admission: May 30, 2021 Date of Discharge: May 31, 2021 Admitting Diagnosis: ICM, Chronic systolic CHF, CAD, DM2, HTN, HLP Final Diagnosis S/P AICD, ICM, CAD, Chronic systolic CHF, DM2, HTN, HLP Brief Hospital Course Allergies Allergies Coded Allergies Type Severity Reaction Last Updated Verified No Known Drug Allergies 10/23/13 No Vital Signs Vital Signs Date Time Temp Pulse Resp B/P (MAP) Pulse Ox O2 Delivery O2 Flow Rate FiO2 05/31/21 11:20 98 Room Air 05/31/21 10:22 98.9 94 16 146/66 (92) 98.9 05/31/21 08:58 3.0 Lab Results Laboratory Tests Test 05/30/21 09:53 05/30/21 12:12 05/30/21 16:32 05/30/21 20:21 White Blood Count 8.5 x10^3/uL (4.0-11.0) Red Blood Count 4.91 x10^6/uL (4.30-5.70) Hemoglobin 13.3 g/dL (13.0-17.5) Hematocrit 40.4 % (39.0-53.0) Mean Corpuscular Volume 82 fL (79-100) Mean Corpuscular Hemoglobin 27 pg (25-35) Mean Corpuscular Hemoglobin Concent 33 g/dL (31-37) Red Cell Distribution Width 15.0 % (11.5-14.5) Platelet Count 276 x10^3/uL (140-400) Prothrombin Time 13.1 SEC (11.7-14.0) Prothromb Time International Ratio 1.0 (0.8-1.1) Sodium Level 138 mmol/L (136-145) Potassium Level 4.1 mmol/L (3.5-5.1) Chloride Level 103 mmol/L (98-107) Carbon Dioxide Level 23 mmol/L (21-32) Anion Gap 12 (6-14) Blood Urea Nitrogen 16 mg/dL (8-26) Creatinine 1.3 mg/dL (0.7-1.3) Estimated GFR (Cockcroft-Gault) 63.6 Glucose Level 140 mg/dL (70-99) Calcium Level 8.7 mg/dL (8.5-10.1) Glucose (Fingerstick) 165 mg/dL (70-99) 177 mg/dL (70-99) 217 mg/dL (70-99) Test 05/31/21 07:34 05/31/21 11:53 Glucose (Fingerstick) 165 mg/dL (70-99) 211 mg/dL (70-99) Laboratory Tests Test 05/30/21 12:12 05/30/21 16:32 05/30/21 20:21 05/31/21 07:34 Glucose (Fingerstick) 165 mg/dL (70-99) 177 mg/dL (70-99) 217 mg/dL (70-99) 165 mg/dL (70-99) Test 05/31/21 11:53 Glucose (Fingerstick) 211 mg/dL (70-99) Brief Hospital Course Mr. Robertson is a 86 old male admitted for planned AICD placement. He is significant for ICM, chronic systolic CHF, DM2, HTN, HLP. He had a successful implantation of [employer] dual-chamber automated implantable cardioverter defibrillator for primary prevention of sudden cardiac in a patient with ischemic cardiomyopathy. Defibrillation thresholds were measured at the time of implantation. Surgical pain is controlled. No immediate post operative complications. Stable readings per repeat interrogation. No chest pain, SOA. AOX3, LSCTA, left chest surgical incision intact with steristrips with minute sanguinous drain. No erythema. LUE neurovascular status intact. Abd soft and nontender. No peripheral edema. He refused to have home health and he has sons that could check him out from time to time. VSS. Continue home medications. Added low dose lisinopril as he is not able to afford entresto. Increase toprol. Post pacer instruction given. Sling is in place. Follow up in office in 2 weeks for wound check. Discharge Information Condition at Discharge: Stable Follow Up: Weeks (2) Disposition/Orders: D/C to Home Scheduled Allopurinol (Allopurinol) 300 Mg Tablet, 1 TAB PO DAILY for GOUT, #30 Ref 5 (Reported) Entered as Reported by: Violette Sibley on 05/30/21927 Last Action: Continued on 05/30/21 144 by MICHELE GALLARDO APRN Amlodipine Besylate (Amlodipine Besylate) 10 Mg Tablet, 10 MG PO DAILY for blood pressure, (Reported) Entered as Reported by: Violette Sibley on 05/30/21942 Last Taken: Unknown Dose on 05/30/21 Last Action: Continued on 05/30/211445 by MICHELE GALLARDO APRN Aspirin (Aspirin) 81 Mg Tab.chew, 1 TAB PO DAILY for md order, #30 Ref 3 (Reported) Entered as Reported by: ANA RUSH on 04/19/18 1008 Last Action: Continued on 05/30/211445 by MICHELE GALLARDO APRN Atorvastatin Calcium (Atorvastatin Calcium) 10 Mg Tablet, 1 TAB PO DAILY for cholesterol, #30 Ref 5 (Reported) Entered as Reported by: Violette Sibley on 05/30/21927 Last Action: Continued on 05/30/211445 by MICHELE GALLARDO APRN Cetirizine Hcl (Cetirizine Hcl) 10 Mg Tablet, 1 TAB PO DAILY for allergies, #30 Ref 5 (Reported) Entered as Reported by: Violette Sibley on 05/30/21942 Last Action: Continued on 05/30/211445 by MICHELE GLALARDO APRN Cholecalciferol (Vitamin D3) (Vitamin D3 ) 125 Mcg Capsule, 125 MCG PO DAILY for SUPPLEMENT, (Reported) 5,000 UNITS = 125 MCG Entered as Reported by: Violette Sibley on 05/30/21948 Last Action: Continued on 05/30/211445 by MICHELE GALLARDO APRN Clopidogrel Bisulfate (Clopidogrel) 75 Mg Tablet, 75 MG PO DAILY for TO PREVENT BLOOD CLOTS, #30 Ref 0 (Reported) Entered as Reported by: VASU MCCULLOUGH on 01/15/19 0804 Last Taken: Unknown Dose on 05/30/21 Last Action: Continued on 05/30/211445 by MICHELE GALLARDO APRN Cyanocobalamin (Vitamin B-12) (Vitamin B-12) 1,000 Mcg Tablet, 1 TAB PO DAILY for supplement for 30 Days, #30 Ref 0 (Reported) Entered as Reported by: Violette Sibley on 05/30/21948 Last Action: Continued on 05/30/211445 by MICHELE GALLARDO APRN Glipizide (Glipizide) 10 Mg Tablet, 10 MG PO DAILY for diabetes, (Reported) Entered as Reported by: Violette Sibley on 05/30/21 0943 Last Action: Converted on 05/30/211445 by MICHELE GALLARDO APRN Hydralazine Hcl (Hydralazine Hcl) 25 Mg Tablet, 25 MG PO BID for CAD, #60 Ref 3 Prescribed by: YANIQUE PERSAUD on 06/18/19 1250 Last Taken: Unknown Dose on 05/30/21 Last Action: Continued on 05/30/211445 by MICHELE GALLARDO APRN Ipratropium/Albuterol Sulfate (Duoneb 0.5-3(2.5) Mg/3 Ml) 3 Ml Ampul.neb, 3 ML NEB Q4H for COUGH for 14 Days, #84 Prescribed by: MEDINA LUX MD on 06/11/19 1657 Last Action: Continued on 05/30/211445 by MICHELE GALLARDO APRN Iron,Carbonyl (Iron Chews) 15 Mg Tab.chew, 1 TAB PO DAILY for suppliment for 30 Days, #30 Ref 0 (Reported) Entered as Reported by: Violette Sibley on 10/28/19 1123 Last Action: Converted on 05/30/211445 by MICHELE GALLARDO APRN Isosorbide Mononitrate (Isosorbide Mononitrate Er) 30 Mg Tab.er.24h, 1 TAB PO DAILY for CAD, #30 Ref 3 Prescribed by: YANIQUE PERSAUD on 06/18/19 1250 Last Action: Continued on 05/30/211445 by MICHELE GALLARDO APRN Lansoprazole (Prevacid) 30 Mg Capsule.dr, 1 CAP PO DAILY for md order, #30 Ref 3 (Reported) Entered as Reported by: ANA RUSH on 04/19/18 1008 Last Action: Converted on 05/30/211445 by MICHELE GALLARDO APRN Lisinopril (Lisinopril) 5 Mg Tablet, 1 TAB PO DAILY for CAD for 30 Days, #30 Ref 5 Prescribed by: YANIQUE PERSAUD on 05/31/21 1232 Metoprolol Succinate (Metoprolol Succinate ( Xl )) 25 Mg Tab.er.24h, 50 MG PO DAILY for CAD for 30 Days, #60 Ref 3 Prescribed by: YANIQUE PERSAUD on 05/31/21 1232 Mv-Mn/Iron/Fa/Herbal Cmplx#190 (Vitamin D3 Complete Caplet) 1 Each Tablet, 1 EACH PO DAILY for suppliment, (Reported) Entered as Reported by: Violette Sibley on 10/28/19 1123 Last Action: Converted on 05/30/211445 by MICHELE GALLARDO APRN Potassium Chloride (Potassium Chloride ) 20 Meq Tablet.er, 20 MEQ PO DAILY for low potassium, (Reported) Entered as Reported by: ANA RUSH on 04/19/18 1008 Last Action: Continued on 05/30/211445 by MICHELE GALLARDO APRN [place] Fruit (S[place]) 450 Mg Capsule, 450 MG PO DAILY for supplement, (Reported) Entered as Reported by: Violette Sibley on 05/30/21948 Last Action: New Order on 05/30/21948 by Violette Sibley Scheduled PRN Furosemide (Lasix) 40 Mg Tablet, 1 TAB PO PRN DAILY PRN for SEE COMMENTS for 30 Days, #30 Ref 3 Use for CHF symptoms such as increasing weight, shortness of breath when laying down, increasing leg swelling Prescribed by: YANIQUE PERSAUD on 05/31/21 1326 Tramadol Hcl (Tramadol Hcl) 50 Mg Tablet, 50 MG PO BID PRN for PAIN, Ref 0 (Reported) Entered as Reported by: Violette Sibley on 05/30/21942 Last Action: Continued on 05/30/211445 by MIHCELE GALLARDO APRN Discontinued Medications Metoprolol Succinate (Metoprolol Succinate ( Xl )) 25 Mg Tab.er.24h, 1 TAB PO DAILY for blood pressure, #30 Ref 5 (Reported) Entered as Reported by: Violette Sibley on 05/30/21942 Last Taken: Unknown Dose on 05/30/21 Last Action: Continued on 05/30/211445 by MICHELE GALLARDO APRN Patient Instructions Patient Instructions Must know & what to expect after device implant: 1. Your surgical dressing should be removed prior to discharge from the hospital, but allow the steri- strips to fall off naturally. 2. Activity restrictions: DO NOT raise arm above shoulder level, lift anything heavier than a gallon of milk, and no push or pull motions such as vacuuming/lawn mowing, no swinging motions (golf), etc for 4 weeks. 3. It is OK to use a cell phone or other electronic devices just be sure you do not store it in a breast pocket on the side where the device was placed. 4. Device will be interrogated prior to your discharge from the hospital and then every 3 months for defibrillators and every 6 months for pacemakers. You may be asked to have your device checked remotely from home as well, but this will depend on your particular physicians preference. 5. You may remove the arm immobilizer the day after device placement. Wear the arm immobilizer/splint at night (during sleep times) for 2 week to prevent unintended arm movement that can cause lead dislodgement. 6. Do not drive for one week as the task of driving may lead to unintended arm motion that may cause lead dislodgement. The seatbelt will also rub against the incision site & cause irritation. 7. It is our recommendation that you utilize Tylenol at home for pain control. You need to call our office if you are having uncontrollable pain at the incision site. 8. Keep your incision clean and dry. It is OK to shower. DO NOT submerge in bath, pool, or hot tub, until cleared by your doctor, as this could lead to increase risk of infection.. It is OK to use regular soap just do not scrub the incision site. Water spray from shower should not directly hit the incision. Be sure to blot dry not rub. 9. Inspect your incision daily. If you notice any increased redness, swelling, or drainage, or if you start running a fever, call the office immediately. The number is [phone]. 10. For women, if you need to protect against irritation from the bra straps, you can place a piece of gauze over the incision site for cushion. Please be sure to tape it loosely to allow air to the site & remove the gauze when you remove the bra. 11. Be sure to carry your device identification information card in your wallet/purse at all times. 12. It is OK to go through security at the airport with your device, but be sure to let the TSA know prior to proceeding as the security settings change depending on varying factors. Please do whatever is requested by security at that time. 13. Some of the newer devices may be MRI compatible but, currently, the use of these devices is not widespread, so you likely will not be able to have an MRI. Please clarify this with your physician. Special instructions for defibrillator patients: If your device recognizes a rhythm that requires treatment with a shock, you will most likely feel the shock. This is usually not a subtle feeling and it is uncomfortable. Please follow these steps if you receive a shock: Call the office if you receive one shock. Go to the emergency room if you receive two consecutive shocks- please have someone drive you & call 911 if nobody is available- DO NOT drive yourself. Call 911 if you receive more than 2 consecutive shocks. If at any time, you feel lightheaded or dizzy/faint, stop what you are doing & lie down immediately. If you are driving, get to the side of the road quickly, turn your car off & call 911 on your cell phone. DO NOT continue to drive as this may cause an accident that seriously injures yourself &/or others. Call the office at [phone] for any questions or concerns. Justicifation of Admission Dx: Justifications for Admission: Justification of Admission Dx: Yes VINNY PORRAS MD 05/31/21 5174: Discharge Summary Brief Hospital Course Brief Hospital Course Patient seen and examined. Agree with CLIENT DEVELOPMENT DIRECTOR's assessment and plan s/p successful AICD implantation for primary prevention of sudden in a patient with known ischemic cardiomyopathy. Defibrillation thresholds were measured at the time of implantation. Incision looked good, device check showed normal function and chest x-ray did not show any pneumothorax. Okay for DC and follow-up as scheduled Discharge Information Scheduled Allopurinol (Allopurinol) 300 Mg Tablet, 1 TAB PO DAILY for GOUT, #30 Ref 5 (Reported) Entered as Reported by: Violette Sibley on 05/30/21927 Last Action: Continued on 05/30/21 1446 by MICHELE GALLARDO APRN Amlodipine Besylate (Amlodipine Besylate) 10 Mg Tablet, 10 MG PO DAILY for blood pressure, (Reported) Entered as Reported by: Violette Sibley on 05/30/21942 Last Taken: Unknown Dose on 05/30/21 Last Action: Continued on 05/30/211445 by MICHELE GALLARDO APRN Aspirin (Aspirin) 81 Mg Tab.chew, 1 TAB PO DAILY for md order, #30 Ref 3 (Reported) Entered as Reported by: ANA RUSH on 04/19/18 1008 Last Action: Continued on 05/30/211445 by MICHELE GALLARDO APRN Atorvastatin Calcium (Atorvastatin Calcium) 10 Mg Tablet, 1 TAB PO DAILY for cholesterol, #30 Ref 5 (Reported) Entered as Reported by: Violette Sibley on 05/30/21927 Last Action: Continued on 05/30/211445 by MICHELE GALLARDO APRN Cetirizine Hcl (Cetirizine Hcl) 10 Mg Tablet, 1 TAB PO DAILY for allergies, #30 Ref 5 (Reported) Entered as Reported by: Violette Sibley on 05/30/21942 Last Action: Continued on 05/30/211445 by MICHELE GALLARDO APRN Cholecalciferol (Vitamin D3) (Vitamin D3 ) 125 Mcg Capsule, 125 MCG PO DAILY for SUPPLEMENT, (Reported) 5,000 UNITS = 125 MCG Entered as Reported by: Violette Sibley on 05/30/21948 Last Action: Continued on 05/30/211445 by MICHELE GALLARDO APRN Clopidogrel Bisulfate (Clopidogrel) 75 Mg Tablet, 75 MG PO DAILY for TO PREVENT BLOOD CLOTS, #30 Ref 0 (Reported) Entered as Reported by: VASU MCCULLOUGH on 01/15/19 0804 Last Taken: Unknown Dose on 05/30/21 Last Action: Continued on 05/30/211445 by MICHELE GALLARDO APRN Cyanocobalamin (Vitamin B-12) (Vitamin B-12) 1,000 Mcg Tablet, 1 TAB PO DAILY for supplement for 30 Days, #30 Ref 0 (Reported) Entered as Reported by: Violette Sibley on 05/30/21948 Last Action: Continued on 05/30/211445 by MICHELE GALLARDO APRN Glipizide (Glipizide) 10 Mg Tablet, 10 MG PO DAILY for diabetes, (Reported) Entered as Reported by: Violette Sibley on 2/14/22 0943 Last Action: Converted on 05/30/211445 by MICHELE GALLARDO APRN Hydralazine Hcl (Hydralazine Hcl) 25 Mg Tablet, 25 MG PO BID for CAD, #60 Ref 3 Prescribed by: YANIQUE PERSAUD on 06/18/19 1250 Last Taken: Unknown Dose on 05/30/21 Last Action: Continued on 05/30/211445 by MICHELE GALLARDO APRN Ipratropium/Albuterol Sulfate (Duoneb 0.5-3(2.5) Mg/3 Ml) 3 Ml Ampul.neb, 3 ML NEB Q4H for COUGH for 14 Days, #84 Prescribed by: MEDINA LUX MD on 06/11/19 1657 Last Action: Continued on 05/30/211445 by MICHELE GALLARDO APRN Iron,Carbonyl (Iron Chews) 15 Mg Tab.chew, 1 TAB PO DAILY for suppliment for 30 Days, #30 Ref 0 (Reported) Entered as Reported by: Violette Sibley on 10/28/19 1123 Last Action: Converted on 05/30/211445 by MICHELE GALLARDO APRN Isosorbide Mononitrate (Isosorbide Mononitrate Er) 30 Mg Tab.er.24h, 1 TAB PO DAILY for CAD, #30 Ref 3 Prescribed by: YANIQUE PERSAUD on 06/18/19 1250 Last Action: Continued on 05/30/211445 by MICHELE GALLARDO APRN Lansoprazole (Prevacid) 30 Mg Capsule.dr, 1 CAP PO DAILY for md order, #30 Ref 3 (Reported) Entered as Reported by: ANA RUHS on 04/19/18 1008 Last Action: Converted on 05/30/211445 by MICHELE GALLARDO APRN Lisinopril (Lisinopril) 5 Mg Tablet, 1 TAB PO DAILY for CAD for 30 Days, #30 Ref 5 Prescribed by: YANIQUE PERSAUD on 05/31/21 1232 Metoprolol Succinate (Metoprolol Succinate ( Xl )) 25 Mg Tab.er.24h, 50 MG PO DAILY for CAD for 30 Days, #60 Ref 3 Prescribed by: YANIQUE PERSAUD on 05/31/21 1232 Mv-Mn/Iron/Fa/Herbal Cmplx#190 (Vitamin D3 Complete Caplet) 1 Each Tablet, 1 EACH PO DAILY for suppliment, (Reported) Entered as Reported by: Violette Sibley on 10/28/19 1123 Last Action: Converted on 05/30/211445 by MICHELE GALLARDO APRN Potassium Chloride (Potassium Chloride ) 20 Meq Tablet.er, 20 MEQ PO DAILY for low potassium, (Reported) Entered as Reported by: ANA RUSH on 04/19/18 1008 Last Action: Continued on 05/30/211445 by MICHELE GALLARDO APRN [place] Fruit (S[place]) 450 Mg Capsule, 450 MG PO DAILY for supplement, (Reported) Entered as Reported by: Violette Sibley on 05/30/21948 Last Action: New Order on 05/30/21948 by Violette Sibley Scheduled PRN Furosemide (Lasix) 40 Mg Tablet, 1 TAB PO PRN DAILY PRN for SEE COMMENTS for 30 Days, #30 Ref 3 Use for CHF symptoms such as increasing weight, shortness of breath when laying down, increasing leg swelling Prescribed by: YANIQUE PERSAUD on 05/31/21 1326 Tramadol Hcl (Tramadol Hcl) 50 Mg Tablet, 50 MG PO BID PRN for PAIN, Ref 0 (Reported) Entered as Reported by: Violette Sibley on 05/30/21942 Last Action: Continued on 05/30/211445 by MICHELE GALLARDO APRN Discontinued Medications Metoprolol Succinate (Metoprolol Succinate ( Xl )) 25 Mg Tab.er.24h, 1 TAB PO DAILY for blood pressure, #30 Ref 5 (Reported) Entered as Reported by: Violette Sibley on 05/30/21942 Last Taken: Unknown Dose on 05/30/21 Last Action: Continued on 05/30/211445 by MIGEL GARCIA JHUNNE M APRN May 31, 2021 12:29 VINNY PORRAS MD May 31, 2021 16:23
[2021-05-31] MEDS ORDERED: LISI5TAB15 PO (12:32)
[2021-05-31] MEDS ORDERED: METO-239 PO (12:32)
[2021-05-31] MEDS ORDERED: FURO-68 PO (13:26)
== END 2021-05-31 14:13 | disposition home or self-care (01) ==
LOC: SURG 09:08 → 6 SOUTH 09:35
PROVIDERS: ADMIT Internal Medicine Cardiovascular Disease; ATTEND Internal Medicine Cardiovascular Disease
DX: I25.5 Ischemic cardiomyopathy (principal); I11.0 Hypertensive heart disease with heart failure; I50.22 Chronic systolic (congestive) heart failure; I25.10 Atherosclerotic heart disease of native coronary artery without angina pectoris; E11.9 Type 2 diabetes mellitus without complications; E78.5 Hyperlipidemia, unspecified; M10.9 Gout, unspecified; Z79.02 Long term (current) use of antithrombotics/antiplatelets; Z79.82 Long term (current) use of aspirin; Z79.84 Long term (current) use of oral hypoglycemic drugs; Z79.899 Other long term (current) drug therapy; Z95.810 Presence of automatic (implantable) cardiac defibrillator
CPT/HCPCS: 33249; 36415; 71045; 71046; 75820; 80048; 82962; 85027; 85610; 93005; 93640; 94640; 96374; C1721; G0378; G0379; J0690; J1100; J1815; J2370; J2405; J2704; J3490; J7120; Q9967